=== PATIENT | female | born 1960 | race American Indian/Alaskan Native ===

== ENCOUNTER 2019-02-21 22:04 | Inpatient (IN) | payer OTHER ==
[2019-02-21] MEDS ORDERED: DUONEB *Not for PRN Use IH ONE (22:45)
[2019-02-21] MEDS ORDERED: SOLU-Medrol IV ONE (22:45)
--- NOTE | 2019-02-21 22:49 | Emergency Department Report ---
ED Shortness of Breath HPI - General Chief Complaint: Dyspnea/Respdistress Stated Complaint: MASTER Time Seen by Provider: 02/21/19 22:44 Source: patient, EMS Mode of arrival: Stretcher Limitations: No Limitations - History of Present Illness Initial Comments: Condition is a 58-year-old female that presents emergency room with complaints of difficulty breathing and shortness of breath. Patient brought in by EMS. Patient states her symptoms started about 6 hours ago. Patient states her symptoms are worsening. Patient states she had a cough recently. Patient denies fever and chills. . Patient states it she's not able to walk without getting out of breath. Patient states her shortness of respiratory distress worse with exertion. Patient is complaining of chest pain at a 6 out of 10. Patient states his pain is worse with exertion and better with rest. Patient denies chest pain radiating. She denies history of COPD or CHF. Report received from EMS. EMS states that upon arrival to the patient's house patient was 87% on room air. Patient was placed on oxygen and oxygenation improved. MD Complaint: shortness of breath, cough, chest pain -: Sudden Severity: moderate, severe Pain Scale: 6 Quality: throbbing Consistency: constant Improves With: rest Worsens With: lying flat, exertion, movement, coughing, inspiration Context: recent URI Associated Symptoms: chest pain, cough, sputum production Treatments Prior to Arrival: oxygen - Related Data Home Oxygen Therapy: No Allergies Allergy/AdvReac Type Severity Reaction Status Date / Time No Known Allergies Allergy Verified 02/22/19 00:36 ED Review of Systems ROS: Stated complaint: MASTER Other details as noted in HPI Constitutional: denies: chills, fever Eyes: denies: eye pain, eye discharge, vision change ENT: denies: ear pain, throat pain Respiratory: cough, shortness of breath. denies: wheezing Cardiovascular: chest pain. denies: palpitations Endocrine: no symptoms reported Gastrointestinal: denies: abdominal pain, nausea, diarrhea Genitourinary: denies: urgency, dysuria, discharge Musculoskeletal: denies: back pain, joint swelling, arthralgia Skin: denies: rash, lesions Neurological: denies: headache, weakness, paresthesias Psychiatric: denies: anxiety, depression Hematological/Lymphatic: denies: easy bleeding, easy bruising ED Past Medical Hx - Past Medical History Previous Medical History?: Yes Hx Hypertension: Yes Hx CVA: Yes (right sided) Hx Congestive Heart Failure: No Hx Renal Disease: Yes (ckd) Hx COPD: No Additional medical history: high cholesterol,hyper/hypothyroidism, - Surgical History Past Surgical History?: No - Family History Family history: no significant - Social History Smoking Status: Former Smoker Substance Use Type: None ED Physical Exam - General Limitations: No Limitations General appearance: alert, in no apparent distress - Head Head exam: Present: atraumatic, normocephalic - Eye Eye exam: Present: normal appearance - ENT ENT exam: Present: mucous membranes moist - Neck Neck exam: Present: normal inspection - Respiratory Respiratory exam: Present: wheezes, rhonchi, decreased breath sounds. Absent: chest wall tenderness - Cardiovascular Cardiovascular Exam: Present: regular rate, normal rhythm, tachycardia. Absent: systolic murmur, diastolic murmur, rubs, gallop - GI/Abdominal GI/Abdominal exam: Present: soft, normal bowel sounds. Absent: distended, tenderness, guarding - Extremities Exam Extremities exam: Present: normal inspection - Back Exam Back exam: Present: normal inspection - Neurological Exam Neurological exam: Present: alert, oriented X3 - Psychiatric Psychiatric exam: Present: normal affect, normal mood - Skin Skin exam: Present: warm, dry, intact, normal color. Absent: rash ED Course Vital Signs 02/21/19 02/21/19 02/21/19 22:22 22:31 23:00 Temperature 99 F Pulse Rate 103 H 95 H Pulse Rate [ Anterior Bilateral] Respiratory 22 23 Rate Respiratory Rate [Anterior Bilateral] Blood Pressure 145/100 Blood Pressure 146/100 [Right] O2 Sat by Pulse 97 97 98 Oximetry 02/21/19 02/21/19 02/21/19 23:05 23:12 23:17 Temperature Pulse Rate 101 H Pulse Rate [ 92 H 98 H Anterior Bilateral] Respiratory 26 H Rate Respiratory 20 23 Rate [Anterior Bilateral] Blood Pressure 146/97 Blood Pressure [Right] O2 Sat by Pulse 95 Oximetry 02/22/19 02/22/19 02/22/19 00:00 00:25 00:55 Temperature Pulse Rate 95 H Pulse Rate [ Anterior Bilateral] Respiratory 20 18 16 Rate Respiratory Rate [Anterior Bilateral] Blood Pressure 135/88 Blood Pressure [Right] O2 Sat by Pulse 97 Oximetry 02/22/19 02/22/19 02/22/19 01:00 01:30 01:41 Temperature Pulse Rate 92 H 89 91 H Pulse Rate [ Anterior Bilateral] Respiratory 21 17 18 Rate Respiratory Rate [Anterior Bilateral] Blood Pressure 139/98 134/94 134/94 Blood Pressure [Right] O2 Sat by Pulse 97 97 97 Oximetry 02/22/19 02/22/19 02/22/19 01:51 02:00 02:11 Temperature Pulse Rate 90 92 H 89 Pulse Rate [ Anterior Bilateral] Respiratory 16 18 16 Rate Respiratory Rate [Anterior Bilateral] Blood Pressure 127/97 127/97 131/94 Blood Pressure [Right] O2 Sat by Pulse 97 97 98 Oximetry 02/22/19 02/22/19 02/22/19 02:21 02:30 02:41 Temperature Pulse Rate 86 86 94 H Pulse Rate [ Anterior Bilateral] Respiratory 15 18 18 Rate Respiratory Rate [Anterior Bilateral] Blood Pressure 123/96 129/92 129/92 Blood Pressure [Right] O2 Sat by Pulse 98 98 97 Oximetry 02/22/19 02/22/19 02/22/19 02:51 03:00 03:11 Temperature Pulse Rate 83 85 85 Pulse Rate [ Anterior Bilateral] Respiratory 17 19 19 Rate Respiratory Rate [Anterior Bilateral] Blood Pressure 136/100 136/96 136/96 Blood Pressure [Right] O2 Sat by Pulse 96 97 98 Oximetry 02/22/19 02/22/19 02/22/19 03:21 03:30 03:41 Temperature Pulse Rate 86 86 84 Pulse Rate [ Anterior Bilateral] Respiratory 16 16 16 Rate Respiratory Rate [Anterior Bilateral] Blood Pressure 128/95 119/93 119/93 Blood Pressure [Right] O2 Sat by Pulse 98 98 98 Oximetry 02/22/19 02/22/19 02/22/19 03:51 04:00 04:11 Temperature Pulse Rate 86 82 86 Pulse Rate [ Anterior Bilateral] Respiratory 14 16 15 Rate Respiratory Rate [Anterior Bilateral] Blood Pressure 128/93 134/94 134/94 Blood Pressure [Right] O2 Sat by Pulse 98 99 99 Oximetry 02/22/19 02/22/19 04:21 04:46 Temperature 98 F Pulse Rate 82 83 Pulse Rate [ Anterior Bilateral] Respiratory 15 16 Rate Respiratory Rate [Anterior Bilateral] Blood Pressure 128/93 Blood Pressure 128/89 [Right] O2 Sat by Pulse 98 100 Oximetry - Reevaluation(s) Reevaluation #1: Patient given multiple medications and patient states she is feeling better but the patient is still complaining of chest pain. Patient will be given aspirin and morphine. 02/22/19 00:20 She states she is feeling better and chest pain is better. lung wheezes have resolved 02/22/19 00:46 Reevaluation #2: Discussed all results with patient. Patient will be admitted to the hospitalist service. Patient agrees to plan of care. 02/22/19 01:06 - Consultations Consultation #1: Hospitalist consulted for admission. Hospitalist to admit patient. Hospitalist to assume care patient. 02/22/19 01:06 ED Medical Decision Making - Lab Data Result diagrams: 02/21/19 22:40 02/21/19 22:40 - EKG Data -: EKG Interpreted by Me EKG shows normal: sinus rhythm, axis, intervals, QRS complexes, ST-T waves Rate: tachycardia - Radiology Data Radiology results: report reviewed PROCEDURE: XR CHEST 1V AP TECHNIQUE: Chest radiograph single view. HISTORY: Shortness of breath COMPARISONS: None . FINDINGS: Heart: Cardiomegaly. Mediastinum/Vessels: Trachea midline. Lungs/Pleural space: Bibasilar airspace disease and effusion. Effusions are small the moderate. Mild interstitial prominence.. Bony thorax: No acute osseous abnormality. Life support devices: None. IMPRESSION: Findings compatible with congestive heart failure. Cardiomegaly. Basilar airspace disease and effusion.. - Medical Decision Making He is a 58-year-old female that presents to emergency room with shortness of breath and chest pain. Patient was found to be hypoxic by EMS. EMS placed her on oxygen. Patient's saturation is been good on 2 L in the ER. Patient's labs are unremarkable except for anemia of chronic disease, chronic kidney disease, hypokalemia and elevated troponin most likely secondary to chronic kidney disease. Patient had a chest x-ray done which showed CHF changes. Patient admitted to the hospitalist service. - Differential Diagnosis cp. sob. pna. chf. acs Critical Care Time: Yes Critical care attestation.: If time is entered above; I have spent that time in minutes in the direct care of this critically ill patient, excluding procedure time. Critical Care Time: 45 minutes ED Disposition Clinical Impression: Hypoxia, SOB (shortness of breath), New onset of congestive heart failure, Hypokalemia Chest pain Qualifiers: Chest pain type: unspecified Qualified Code(s): R07.9 - Chest pain, unspecified CKD (chronic kidney disease) Qualifiers: Chronic kidney disease stage: unspecified stage Qualified Code(s): N18.9 - Chronic kidney disease, unspecified Anemia Qualifiers: Anemia type: unspecified type Qualified Code(s): D64.9 - Anemia, unspecified CHF exacerbation Qualifiers: Heart failure type: unspecified Qualified Code(s): I50.9 - Heart failure, unspecified Disposition: 09 OP ADMIT IP TO THIS HOSP Is pt being admited?: Yes Does the pt Need Aspirin: No Condition: Critical Time of Disposition: 01:01
[2019-02-21] MEDS ORDERED: MAGNESIUM SULFATE 2GM/50ML 2 GM/50 ML BAG IV ONE (22:50)
[2019-02-21] MEDS ORDERED: MAXIPIME/NS 2 GM/100 ML 2 GM/100 ML BAG IV ONE (22:51)
[2019-02-21 22:52] LABS: Basophils # (Auto) 0.1 K/mm3 (0.0-0.1); Basophils % (Auto) 0.8 % (0.0-1.8); Eosinophils # (Auto) 0.2 K/mm3 (0.0-0.4); Eosinophils % (Auto) 2.4 % (0.0-4.3); Hemoglobin 8.7 gm/dl (10.1-14.3); Lymphocytes # (Auto) 2.2 K/mm3 (1.2-5.4); Lymphocytes % (Auto) 27.6 % (13.4-35.0); Mean Corpuscular HGB Conc 32 % (30-34); Mean Corpuscular Volume 87 fl (79-97); Monocytes # (Auto) 0.9 K/mm3 (0.0-0.8); Monocytes % (Auto) 10.6 % (0.0-7.3); Platelet Count 365 K/mm3 (140-440); Red Blood Count 3.11 M/mm3 (3.65-5.03); Red Cell Distribution Width 19.6 % (13.2-15.2)
--- NOTE | 2019-02-21 23:01 | XRay Report ---
PROCEDURE: XR CHEST 1V AP TECHNIQUE: Chest radiograph single view. HISTORY: Shortness of breath COMPARISONS: None . FINDINGS: Heart: Cardiomegaly. Mediastinum/Vessels: Trachea midline. Lungs/Pleural space: Bibasilar airspace disease and effusion. Effusions are small the moderate. Mild interstitial prominence.. Bony thorax: No acute osseous abnormality. Life support devices: None. IMPRESSION: Findings compatible with congestive heart failure. Cardiomegaly. Basilar airspace diseas e and effusion.. This document is electronically signed by Rene Su MD., February 21 2019 10:59:34 PM ET
[2019-02-21 23:02] LABS: INR 1.5 (0.87-1.13)
[2019-02-21 23:03] LABS: Partial Thromboplastin Time 37.4 Sec. (24.2-36.6)
[2019-02-21 23:08] LABS: Calcium 9.1 mg/dL (8.4-10.2)
[2019-02-22] MEDS ORDERED: MORPHINE ONE (00:21)
[2019-02-22] MEDS ORDERED: ASPIRIN ONE (00:21)
[2019-02-22] MEDS ORDERED: ASPIRIN PO ONE (00:25)
[2019-02-22] MEDS ORDERED: MORPHINE IV ONE (00:26)
--- NOTE | 2019-02-22 01:36 | History and Physical Report ---
History of Present Illness Date of examination: 02/22/19 History of present illness: 58-year-old woman with history of hypertension, chronic kidney disease, hyperthyroidism, CVA, hyperlipidemia parathyroid comes to the emergency room with complaints of shortness of breath, PND, orthopnea or lower extremity edema. She also complained of chest pain going across her chest which she describes as sharp, worse with breathing, no radiation, intensity 5/10, CAD) exacerbating or relieving factors. She is on chronic warfarin therapy, unclear why. He had wheezing in the emergency room, given steroids, magnesium, and a breathing treatment, cefepime Review of systems Constitutional: no weight loss, chills, fever Ears, eyes, nose, mouth and throat: no nasal congestion, no nasal discharge, no sinus pressure, no vision change, no red eye. Neck: No neck pain or rigidity. Cardiovascular: no palpitations, chest pain Respiratory: no cough, shortness of breath Gastrointestinal: no hematochezia, abdominal pain Genitourinary : no frequency , no hematuria Musculoskeletal: no joint swelling or muscle ache Integumentary: no rash, no pruritis Neurological: no parathesias, no focal weakness Endocrine: no cold or heat intolerance, no polyuria or polydipsia Hematologic/Lymphatic: no easy bruising, no easy bleeding, no gland swelling Allergic/Immunologic: no urticaria, no angioedema. PAST MEDICAL HISTORY: hypertension, chronic kidney disease, hyperthyroidism, CVA, hyperlipidemia parathyroid PAST SURGICAL HISTORY: None SOCIAL HISTORY: Denies alcohol, drugs, tobacco FAMILY HISTORY: Hypertension Medications and Allergies Allergies Allergy/AdvReac Type Severity Reaction Status Date / Time No Known Allergies Allergy Verified 02/22/19 00:36 Home Medications Medication Instructions Recorded Confirmed Last Taken Type Atovaquone [Mepron] 2 tsp PO DAILY 02/22/19 02/22/19 02/21/19 History Calcitriol [Rocaltrol] 1 tab PO DAILY 02/22/19 02/22/19 Unknown History Cinacalcet [Sensipar] 30 mg PO QDAY 02/22/19 02/22/19 02/21/19 History Ergocalciferol [Vitamin D2] 1 cap PO WMHS 02/22/19 02/22/19 Unknown History Levothyroxine [Synthroid] 75 mcg PO QAM 02/22/19 02/22/19 Unknown History Lisinopril [Zestril TAB] 20 mg PO QDAY 02/22/19 02/22/19 Unknown History Nicotine [Habitrol] 14 mg TD DAILY 02/22/19 02/22/19 02/21/19 History Omeprazole 20 mg PO DAILY 02/22/19 02/22/19 Unknown History Potassium Chloride [K-Dur] 20 meq PO QDAY 02/22/19 02/22/19 Unknown History Pravastatin [Pravachol] 20 mg PO QHS 02/22/19 02/22/19 Unknown History Sodium Bicarbonate 650 mg PO DAILY 02/22/19 02/22/19 02/21/19 History Torsemide [Demadex] 100 mg PO DAILY 02/22/19 02/22/19 Unknown History Warfarin [Coumadin] 5 mg PO QDAY 02/22/19 02/22/19 02/21/19 History predniSONE [Deltasone] 60 mg PO QDAY 02/22/19 02/22/19 02/21/19 History Exam - Physical Exam Narrative exam: General Apperance: The patient lying in bed, breathing comfortable HEENT: Normocephalic, atraumatic. Pupils equally round and reactive to light, EOMI, no sclericterus or JVD or thyromegaly or nodule. , no carotid bruit, mucous membranes moist, no exudate or erythema Heart: S1-S2, regular is rhythm Lungs: Crackles bilaterally, breathing comfortable Abdomen: Positive bowel sounds, soft, nontender, nondistended, no organomegaly Extremities: 3+ edema up to knees,no cyanosis clubbing Skin: no rash, nodule, warm and dry Neuro: cranial nerves 2-12 intact, speech is fluent, motor/sensory intact - Constitutional Vitals: Temp Pulse Resp BP Pulse Ox 99 F 92 H 21 139/98 97 02/21/19 22:22 02/22/19 01:00 02/22/19 01:00 02/22/19 01:00 02/22/19 01:00 Results - Labs CBC & Chem 7: 02/24/19 09:20 02/24/19 09:20 Labs: Abnormal lab results 02/21/19 02/21/19 02/21/19 Range/Units 22:40 22:40 22:40 RBC 3.11 L (3.65-5.03) M/mm3 Hgb 8.7 L (10.1-14.3) gm/dl Hct 27.0 L (30.3-42.9) % RDW 19.6 H (13.2-15.2) % [place] % (Auto) 10.6 H (0.0-7.3) % [place] # 0.9 H (0.0-0.8) K/mm3 PT 19.1 H (12.2-14.9) Sec. INR 1.50 H (0.87-1.13) APTT 37.4 H (24.2-36.6) Sec. Potassium 2.9 L* (3.6-5.0) mmol/L Chloride 113.5 H (98-107) mmol/L Carbon Dioxide 21 L (22-30) mmol/L BUN 20 H (7-17) mg/dL Creatinine 2.5 H (0.7-1.2) mg/dL Troponin T 0.044 H (0.00-0.029) ng/mL - Imaging and Cardiology EKG: image reviewed Chest x-ray: report reviewed Assessment and Plan Assessment New-onset CHF, probably diastolic dysfunction chest pain Hypokalemia Hypertension Chronic kidney disease Hyperlipidemia History of CVA hyper/hyperthyroidism hypoparathyroidism Plan Admit to medicine diuresis IV Lasix Start Beta montez, , aspirin hold MARYCRUZ inhibitor, clear if there is an acute component to the kidney disease Check cardiac enzymes, d-dimer, echo, consult cardiology Monitor I's and O's, daily weights Obtain stress test Continue appropriate outpatient medications DVT prophylaxis
[2019-02-22] MEDS ORDERED: LASIX IV ONE ×2 (01:55→02:46)
[2019-02-22 02:13] LABS: Chol/HDL Ratio 3.3 %
[2019-02-22] MEDS ORDERED: K-DUR PO ONE (02:21)
[2019-02-22] MEDS ORDERED: SODIUM CHLORIDE FLUSH SYRINGE 10 ML IV PRN (02:23)
[2019-02-22] MEDS ORDERED: TYLENOL PO PRN (02:23)
[2019-02-22] MEDS ORDERED: ZOFRAN IV PRN (02:23)
[2019-02-22] MEDS: KCL 10MEQ/100ML 10 MEQ/100 ML BAG IV SCH ×2 (02:44→03:45)
[2019-02-22] MEDS ORDERED: LASIX ONE (04:48)
[2019-02-22 04:57] LABS: Creatine Kinase MB < 1.0 ng/mL (0.0-4.0)
[2019-02-22] MEDS ORDERED: LASIX IV SCH (06:00)
[2019-02-22 06:41] LABS: Basophils % (Auto) 0.3 % (0.0-1.8); Hematocrit 26.9 % (30.3-42.9); Hemoglobin 8.8 gm/dl (10.1-14.3); Lymphocytes # (Auto) 1.1 K/mm3 (1.2-5.4); Lymphocytes % (Auto) 13.1 % (13.4-35.0); Mean Corpuscular HGB Conc 33 % (30-34); Mean Corpuscular Volume 86 fl (79-97); Monocytes # (Auto) 0.1 K/mm3 (0.0-0.8); Monocytes % (Auto) 1.2 % (0.0-7.3); Platelet Count 379 K/mm3 (140-440); Red Blood Count 3.12 M/mm3 (3.65-5.03); Red Cell Distribution Width 19.4 % (13.2-15.2)
[2019-02-22 06:43] LABS: INR 1.56 (0.87-1.13)
[2019-02-22 06:44] LABS: Partial Thromboplastin Time 40.4 Sec. (24.2-36.6)
[2019-02-22 07:32] LABS: Calcium 8.8 mg/dL (8.4-10.2)
[2019-02-22] MEDS ORDERED: LOVENOX SUB-Q SCH (10:00)
[2019-02-22] MEDS ORDERED: LEXISCAN IV ONE ×2 (10:26→10:29)
--- NOTE | 2019-02-22 12:28 | Consultation ---
History of Present Illness Consult date: 02/22/19 Consult reason: shortness of breath History of present illness: 58 year old female, poor historian presenting with shortness of breath. Patient denies prior history of cardiac disease. CXR is pertinent for CMG and pulmonary edema. Patient on warfarin at home but she is unsure of why. Troponin elevated secondary to renal failure. MPI today showing no ischemia Past History Past Medical History: hypertension, hyperlipidemia, renal failure, stroke, other (hyperthyroidism) Social history: smoking (Quit December 17, 2018) Medications and Allergies Allergies Allergy/AdvReac Type Severity Reaction Status Date / Time No Known Allergies Allergy Verified 02/22/19 00:36 Home Medications Medication Instructions Recorded Confirmed Last Taken Type Atovaquone [Mepron] 2 tsp PO DAILY 02/22/19 02/22/19 02/21/19 History Calcitriol [Rocaltrol] 1 tab PO DAILY 02/22/19 02/22/19 Unknown History Cinacalcet [Sensipar] 30 mg PO QDAY 02/22/19 02/22/19 02/21/19 History Ergocalciferol [Vitamin D2] 1 cap PO WMHS 02/22/19 02/22/19 Unknown History Levothyroxine [Synthroid] 75 mcg PO QAM 02/22/19 02/22/19 Unknown History Lisinopril [Zestril TAB] 20 mg PO QDAY 02/22/19 02/22/19 Unknown History Nicotine [Habitrol] 14 mg TD DAILY 02/22/19 02/22/19 02/21/19 History Omeprazole 20 mg PO DAILY 02/22/19 02/22/19 Unknown History Potassium Chloride [K-Dur] 20 meq PO QDAY 02/22/19 02/22/19 Unknown History Pravastatin [Pravachol] 20 mg PO QHS 02/22/19 02/22/19 Unknown History Sodium Bicarbonate 650 mg PO DAILY 02/22/19 02/22/19 02/21/19 History Torsemide [Demadex] 100 mg PO DAILY 02/22/19 02/22/19 Unknown History Warfarin [Coumadin] 5 mg PO QDAY 02/22/19 02/22/19 02/21/19 History predniSONE [Deltasone] 60 mg PO QDAY 02/22/19 02/22/19 02/21/19 History Active Meds: Active Medications Acetaminophen (Tylenol) 650 mg PO Q4H PRN PRN Reason: Pain MILD(1-3)/Fever >100.5/[place] Aspirin (Baby Aspirin) 81 mg PO QDAY CHOLO Carvedilol (Coreg) 3.125 mg PO BID CHOLO Furosemide (Lasix) 40 mg IV BID@0600,1800 [facility] Ondansetron HCl (Zofran) 4 mg IV Q8H PRN PRN Reason: Nausea And Vomiting Sodium Chloride (Sodium Chloride Flush Syringe 10 Ml) 10 ml IV BID CHOLO Sodium Chloride (Sodium Chloride Flush Syringe 10 Ml) 10 ml IV PRN PRN PRN Reason: LINE FLUSH Review of Systems All systems: negative Physical Examination Vital Signs Temp Pulse Resp BP Pulse Ox 99 F 103 H 22 146/100 97 02/21/19 22:22 02/21/19 22:22 02/21/19 22:22 02/21/19 22:22 02/21/19 22:22 General appearance: no acute distress HEENT: Positive: PERRL Neck: Positive: neck supple Cardiac: Positive: Reg Rate and Rhythm, Systolic Murmur Lungs: Positive: Normal Exam Abdomen: Positive: Soft Extremities: Present: edema Results 02/22/19 06:06 02/22/19 06:06 Cardiac Enzymes 02/22/19 02/22/19 Range/Units 02:35 08:31 CK-MB (CK-2) < 1.0 1.0 (0.0-4.0) ng/mL Coagulation 02/21/19 02/22/19 Range/Units 22:40 06:06 PT 19.1 H 19.7 H (12.2-14.9) Sec. INR 1.50 H 1.56 H (0.87-1.13) APTT 37.4 H 40.4 H (24.2-36.6) Sec. Lipids 02/21/19 Range/Units 22:40 Triglycerides 111 (2-149) mg/dL Cholesterol 165 (50-199) mg/dL HDL Cholesterol 50 (40-59) mg/dL Cholesterol/HDL Ratio 3.30 % CBC 02/21/19 02/22/19 Range/Units 22:40 06:06 WBC 8.1 8.1 (4.5-11.0) K/mm3 RBC 3.11 L 3.12 L (3.65-5.03) M/mm3 Hgb 8.7 L 8.8 L (10.1-14.3) gm/dl Hct 27.0 L 26.9 L (30.3-42.9) % Plt Count 365 379 (140-440) K/mm3 Lymph # 2.2 1.1 L (1.2-5.4) K/mm3 [place] # 0.9 H 0.1 (0.0-0.8) K/mm3 Eos # 0.2 0.0 (0.0-0.4) K/mm3 Baso # 0.1 0.0 (0.0-0.1) K/mm3 Comprehensive Metabolic Panel 02/21/19 02/22/19 Range/Units 22:40 06:06 Sodium 145 144 (137-145) mmol/L Potassium 2.9 L* 3.8 D (3.6-5.0) mmol/L Chloride 113.5 H 111.5 H (98-107) mmol/L Carbon Dioxide 21 L 18 L (22-30) mmol/L BUN 20 H 20 H (7-17) mg/dL Creatinine 2.5 H 2.5 H (0.7-1.2) mg/dL Glucose 98 109 H (65-100) mg/dL Calcium 9.1 8.8 (8.4-10.2) mg/dL - EKG Interpretation EKG: sinus rhythm EKG interpretations - Telemetry EKG Rhythm: Sinus Rhythm Assessment and Plan Shortness of breath No ischemia by MPI this admission LVEF 45-50% by echo Pulmonary edema and cardiomegaly on CXR Acute diastolic heart failure Non-specific troponin in the setting of renal failure Systemic Hypertension Chronic renal failure Normocytic anemia History of CVA 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
[2019-02-22] MEDS: COREG PO SCH ×2 (12:54→21:28)
[2019-02-22] MEDS: BABY ASPIRIN PO SCH (12:54)
[2019-02-22] MEDS: SODIUM CHLORIDE FLUSH SYRINGE 10 ML IV SCH ×2 (12:54→21:29)
--- NOTE | 2019-02-22 15:13 | Event Note ---
Date: 02/22/19 Patient admitted earlier this morning shows a moderate amount of acute diastolic CHF, CKD. Stress test was done this morning. Continue diuresis. Nephrology consulted. Continue management as outlined per H&P.
[2019-02-22] MEDS: LASIX IV SCH (17:50)
--- NOTE | 2019-02-23 05:03 | Treadmill Report ---
ORDERING PHYSICIAN: Antwan Desir MD FINDINGS: There is no scintigraphic evidence of myocardial ischemia. The left ventricular cavity is normal in size. There is borderline global left ventricular hypokinesis. The left ventricular ejection fraction is measured at 54%. CONCLUSION: 1. No scintigraphic evidence of myocardial ischemia. 2. This is a low risk myocardial perfusion study associated with a cardiovascular event rate of less than 1% in the next 1 year. JOB# [id number] OSEAS/LISANDRA
[2019-02-23 05:33] LABS: Basophils % (Auto) 0.1 % (0.0-1.8); Hematocrit 23.4 % (30.3-42.9); Hemoglobin 7.6 gm/dl (10.1-14.3); Lymphocytes # (Auto) 1.5 K/mm3 (1.2-5.4); Lymphocytes % (Auto) 15.7 % (13.4-35.0); Mean Corpuscular HGB Conc 32 % (30-34); Mean Corpuscular Volume 87 fl (79-97); Monocytes # (Auto) 0.9 K/mm3 (0.0-0.8); Monocytes % (Auto) 9.1 % (0.0-7.3); Platelet Count 338 K/mm3 (140-440); Red Blood Count 2.69 M/mm3 (3.65-5.03); Red Cell Distribution Width 19.7 % (13.2-15.2)
[2019-02-23] MEDS: LASIX IV SCH ×2 (05:49→17:11)
[2019-02-23 06:02] LABS: Calcium 8.9 mg/dL (8.4-10.2)
[2019-02-23] MEDS: BABY ASPIRIN PO SCH (10:31)
[2019-02-23] MEDS: COREG PO SCH ×2 (10:31→21:19)
[2019-02-23] MEDS: SODIUM CHLORIDE FLUSH SYRINGE 10 ML IV SCH ×2 (10:32→21:19)
--- NOTE | 2019-02-23 12:51 | Progress Note ---
Assessment and Plan - Patient Problems (1) SOB (shortness of breath) Current Visit: Yes Status: Acute Plan to address problem: We'll continue management of fluid overload as previously outlined. Echocardiogram shows mild left ventricular dysfunction, ejection fraction 45- 50%. Subjective Date of service: 02/23/19 Interval history: Patient is comfortable, no new cardiac complaints. Objective Vital Signs Temp Pulse Resp BP Pulse Ox 02/23/19 11:07 95 02/23/19 07:46 70 02/23/19 04:29 98.0 F 75 18 117/77 99 02/23/19 04:00 70 02/22/19 23:54 98.4 F 78 18 110/76 100 02/22/19 21:28 80 132/92 02/22/19 20:00 79 02/22/19 19:25 98.1 F 82 18 132/91 98 - Physical Examination General: No Apparent Distress HEENT: Positive: PERRL Neck: Positive: neck supple Cardiac: Positive: Reg Rate and Rhythm Lungs: Positive: Decreased Breath Sounds Neuro: Positive: Grossly Intact Abdomen: Positive: Soft Skin: Positive: Clear Extremities: Present: +1 Edema - Labs and Meds CBC 02/23/19 Range/Units 04:27 WBC 9.7 (4.5-11.0) K/mm3 RBC 2.69 L (3.65-5.03) M/mm3 Hgb 7.6 L (10.1-14.3) gm/dl Hct 23.4 L (30.3-42.9) % Plt Count 338 (140-440) K/mm3 Lymph # 1.5 (1.2-5.4) K/mm3 [place] # 0.9 H (0.0-0.8) K/mm3 Eos # 0.0 (0.0-0.4) K/mm3 Baso # 0.0 (0.0-0.1) K/mm3 Comprehensive Metabolic Panel 02/23/19 Range/Units 04:27 Sodium 143 (137-145) mmol/L Potassium 3.5 L (3.6-5.0) mmol/L Chloride 114.7 H (98-107) mmol/L Carbon Dioxide 22 (22-30) mmol/L BUN 23 H (7-17) mg/dL Creatinine 2.5 H (0.7-1.2) mg/dL Glucose 150 H (65-100) mg/dL Calcium 8.9 (8.4-10.2) mg/dL - Imaging and Cardiology EKG: image reviewed
--- NOTE | 2019-02-23 13:20 | Progress Note ---
Assessment and Plan Assessment and plan: 58-year-old woman with history of hypertension, chronic kidney disease, hyperthyroidism, CVA, hyperlipidemia parathyroid comes to the emergency room with complaints of shortness of breath, PND, orthopnea or lower extremity edema. She also complained of chest pain going across her chest which she describes as sharp, worse with breathing, no radiation, intensity 5/10, CAD) exacerbating or relieving factors. She is on chronic warfarin therapy, unclear why. Acute combined diastolic and systolic CHF - Patient is on IV Lasix - Cardiology consult appreciated - Patient denied history of congestive heart failure, but was taking torsemide as an outpatient - Echo was done and showed ejection fraction of 45-50% Chronic renal failure - Nephrology consulted Anemia likely due to chronic illness - Anemia workup - Hemoglobin dropped from 8.8 to 7.6 - We will monitor DVT prophylaxis - On heparin Disposition - Continue inpatient care History Interval history: Patient was seen and evaluated this morning, patient denies shortness of breath but still she has significant bilateral lower extremity edema. Hospitalist Physical - Physical exam Narrative exam: Not in cardiopulmonary distress. The patient appeared well nourished and normally developed. Vital signs as documented. Head exam is unremarkable. No scleral icterus . Neck is without jugular venous distension, thyromegaly, or carotid bruits. Lungs are clear to auscultation. Cardiac exam reveals regular rate and Rhythm. Abdominal exam reveals normal bowel sounds, no masses, no organomegaly and no aortic enlargement. Extremities are nonedematous and both femoral and pedal pulses are normal. 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 No focal weakness. - Constitutional Vitals: Temp Pulse Resp BP Pulse Ox 98.0 F 70 18 117/77 95 02/23/19 04:29 02/23/19 07:46 02/23/19 04:29 02/23/19 04:29 02/23/19 11:07 General appearance: Present: no acute distress Results - Labs CBC & Chem 7: 02/23/19 04:27 02/23/19 04:27 Labs: Laboratory Last Values WBC 9.7 K/mm3 (4.5-11.0) 02/23/19 04:27 RBC 2.69 M/mm3 (3.65-5.03) L 02/23/19 04:27 Hgb 7.6 gm/dl (10.1-14.3) L 02/23/19 04:27 Hct 23.4 % (30.3-42.9) L 02/23/19 04:27 MCV 87 fl (79-97) 02/23/19 04:27 MCH 28 pg (28-32) 02/23/19 04:27 MCHC 32 % (30-34) 02/23/19 04:27 RDW 19.7 % (13.2-15.2) H 02/23/19 04:27 Plt Count 338 K/mm3 (140-440) 02/23/19 04:27 Lymph % (Auto) 15.7 % (13.4-35.0) 02/23/19 04:27 [place] % (Auto) 9.1 % (0.0-7.3) H 02/23/19 04:27 Eos % (Auto) 0.0 % (0.0-4.3) 02/23/19 04:27 Baso % (Auto) 0.1 % (0.0-1.8) 02/23/19 04:27 Lymph # 1.5 K/mm3 (1.2-5.4) 02/23/19 04:27 [place] # 0.9 K/mm3 (0.0-0.8) H 02/23/19 04:27 Eos # 0.0 K/mm3 (0.0-0.4) 02/23/19 04:27 Baso # 0.0 K/mm3 (0.0-0.1) 02/23/19 04:27 Seg Neutrophils % 75.1 % (40.0-70.0) H 02/23/19 04:27 Seg Neutrophils # 7.3 K/mm3 (1.8-7.7) 02/23/19 04:27 PT 19.7 Sec. (12.2-14.9) H 02/22/19 06:06 INR 1.56 (0.87-1.13) H 02/22/19 06:06 APTT 40.4 Sec. (24.2-36.6) H 02/22/19 06:06 Sodium 143 mmol/L (137-145) 02/23/19 04:27 Potassium 3.5 mmol/L (3.6-5.0) L 02/23/19 04:27 Chloride 114.7 mmol/L (98-107) H 02/23/19 04:27 Carbon Dioxide 22 mmol/L (22-30) 02/23/19 04:27 10 mmol/L 02/23/19 04:27 BUN 23 mg/dL (7-17) H 02/23/19 04:27 2.5 mg/dL (0.7-1.2) H 02/23/19 04:27 Estimated GFR 24 ml/min 02/23/19 04:27 9 % 02/23/19 04:27 Glucose 150 mg/dL (65-100) H 02/23/19 04:27 Lactic Acid 1.00 mmol/L (0.7-2.0) 02/21/19 22:48 Calcium 8.9 mg/dL (8.4-10.2) 02/23/19 04:27 25 units/L (30-135) L 02/22/19 08:31 CK-MB (CK-2) 1.0 ng/mL (0.0-4.0) 02/22/19 08:31 CK-MB (CK-2) Rel Index 4.0 (0-4) 02/22/19 08:31 0.027 ng/mL (0.00-0.029) 02/22/19 08:31 NT-Pro-B Natriuret Pep 3000 pg/mL (0-900) H 02/21/19 22:48 Triglycerides 111 mg/dL (2-149) 02/21/19 22:40 Cholesterol 165 mg/dL (50-199) 02/21/19 22:40 93 mg/dL (50-130) 02/21/19 22:40 50 mg/dL (40-59) 02/21/19 22:40 3.30 % 02/21/19 22:40 TSH 9.630 mlU/mL (0.270-4.200) H 02/22/19 14:52 Active Medications - Current Medications Current Medications: Generic Name Dose Route Start Last Admin Trade Name Freq PRN Reason Stop Dose Admin Acetaminophen 650 mg 02/22/19 02:23 Tylenol PO Q4H PRN Pain MILD(1-3)/Fever >100.5/[place] Aspirin 81 mg 02/22/19 10:00 02/23/19 10:31 Baby Aspirin PO 81 mg QDAY CHOLO Administration Carvedilol 3.125 mg 02/22/19 10:00 02/23/19 10:31 Coreg PO 3.125 mg BID CHOLO Administration Furosemide 40 mg 02/22/19 18:00 02/23/19 05:49 Lasix IV 40 mg BID@0600,1800 CHOLO Administration Ondansetron HCl 4 mg 02/22/19 02:23 Zofran IV Q8H PRN Nausea And Vomiting Sodium Chloride 10 ml 02/22/19 10:00 02/23/19 10:32 Sodium Chloride Flush Syringe 10 Ml IV 10 ml BID CHOLO Administration Sodium Chloride 10 ml 02/22/19 02:23 Sodium Chloride Flush Syringe 10 Ml IV PRN PRN LINE FLUSH
[2019-02-23 15:14] LABS: Iron 40 ug/dL (37-170); Total Iron Binding Capacity 76 mcg/dL (250-450)
--- NOTE | 2019-02-23 16:11 | Consultation ---
History of Present Illness - Reason for Consult Consult date: 02/23/19 acute renal failure, chronic renal failure - History of Present Illness The patient is a 58 YO female with history significant for Hypertension, HLD, Chronic kidney disease, Hypothyroidism, CVA and Hyperparathyroidism who came to [facility] ED with complaints of shortness of breath for the past few days. Patient is short of breath both at rest and exertion. Associated symptoms include PND, orthopnea and lower extremity edema. She denies chest pain, N, V, D, abd pain, dizziness, syncope, fever, chills, dysuria or hematuria. Patient was admitted with CHF exacerbation. Creatinine is 2.5. Nephrology was consulted for further evaluation. Past History Past Medical History: hypertension, hyperlipidemia, renal failure, stroke, other (hyperthyroidism) Social history: smoking (Quit December 17, 2018) Medications and Allergies Allergies Allergy/AdvReac Type Severity Reaction Status Date / Time No Known Allergies Allergy Verified 02/22/19 00:36 Home Medications Medication Instructions Recorded Confirmed Last Taken Type Atovaquone [Mepron] 2 tsp PO DAILY 02/22/19 02/22/19 02/21/19 History Calcitriol [Rocaltrol] 1 tab PO DAILY 02/22/19 02/22/19 Unknown History Cinacalcet [Sensipar] 30 mg PO QDAY 02/22/19 02/22/19 02/21/19 History Ergocalciferol [Vitamin D2] 1 cap PO WMHS 02/22/19 02/22/19 Unknown History Levothyroxine [Synthroid] 75 mcg PO QAM 02/22/19 02/22/19 Unknown History Lisinopril [Zestril TAB] 20 mg PO QDAY 02/22/19 02/22/19 Unknown History Nicotine [Habitrol] 14 mg TD DAILY 02/22/19 02/22/19 02/21/19 History Omeprazole 20 mg PO DAILY 02/22/19 02/22/19 Unknown History Potassium Chloride [K-Dur] 20 meq PO QDAY 02/22/19 02/22/19 Unknown History Pravastatin [Pravachol] 20 mg PO QHS 02/22/19 02/22/19 Unknown History Sodium Bicarbonate 650 mg PO DAILY 02/22/19 02/22/19 02/21/19 History Torsemide [Demadex] 100 mg PO DAILY 02/22/19 02/22/19 Unknown History Warfarin [Coumadin] 5 mg PO QDAY 02/22/19 02/22/19 02/21/19 History predniSONE [Deltasone] 60 mg PO QDAY 02/22/19 02/22/19 02/21/19 History Active Meds: Active Medications Acetaminophen (Tylenol) 650 mg PO Q4H PRN PRN Reason: Pain MILD(1-3)/Fever >100.5/[place] Aspirin (Baby Aspirin) 81 mg PO QDAY [facility] Last Admin: 02/23/19 10:31 Dose: 81 mg Documented by: Carvedilol (Coreg) 3.125 mg PO BID [facility] Last Admin: 02/23/19 10:31 Dose: 3.125 mg Documented by: Furosemide (Lasix) 40 mg IV BID@0600,1800 [facility] Last Admin: 02/23/19 05:49 Dose: 40 mg Documented by: Levothyroxine Sodium (Synthroid) 75 mcg PO QAM [facility] Ondansetron HCl (Zofran) 4 mg IV Q8H PRN PRN Reason: Nausea And Vomiting Pravastatin Sodium (Pravachol) 20 mg PO QHS [facility] Sodium Chloride (Sodium Chloride Flush Syringe 10 Ml) 10 ml IV BID [facility] Last Admin: 02/23/19 10:32 Dose: 10 ml Documented by: Sodium Chloride (Sodium Chloride Flush Syringe 10 Ml) 10 ml IV PRN PRN PRN Reason: LINE FLUSH Review of Systems Constitutional: weight loss, anorexia, fatigue, poor appetite, no weight gain, no fever, no chills, no weakness Breasts: deferred Cardiovascular: orthopnea, edema, shortness of breath, dyspnea on exertion, high blood pressure, leg edema, decreased exercise tolerance, no chest pain, no palpitations, no syncope, no lightheadedness Respiratory: cough, shortness of breath, dyspnea on exertion, no hemoptysis, no home oxygen Gastrointestinal: no abdominal pain, no nausea, no vomiting, no diarrhea, no melena, no hematochezia Genitourinary Female: no dysuria, no hematuria Rectal: no bleeding Musculoskeletal: no gait dysfunction Integumentary: no sores, no wounds, no jaundice Neurological: no seizures, no syncope, no convulsions, no aphasia, no change in speech, no change in mentation, no confusion, no memory loss Exam - Vital Signs Vital signs: Vital Signs Temp Pulse Resp BP Pulse Ox 99 F 103 H 22 146/100 97 02/21/19 22:22 02/21/19 22:22 02/21/19 22:22 02/21/19 22:22 02/21/19 22:22 - General Appearance General appearance: well-developed, well-nourished, appears stated age, other (no distress) EENT: ATNC, PERRL, mucous membranes dry, hearing intact, vision intact Neck: Present: neck supple, trachea midline Respiratory: Clear to Ascultation Heart: regular, S1S2, no murmurs Gastrointestinal: Present: normoactive bowel sounds. Absent: tenderness, distended Integumentary: no rash, warm and dry Neurologic: no focal deficit, no asterixis, alert and oriented x3 Musculoskeletal: Present: other (2+ edema of LEs) Results - Lab Results 02/23/19 04:27 02/23/19 04:27 Most recent lab results Calcium 8.9 mg/dL (8.4-10.2) 02/23/19 04:27 Assessment and Plan 1. Acute kidney injury: APRIL superimposed on CKD in the setting of CHF exacerbation. Baseline renal function is unknown. Urine studies and Renal US. Monitor renal function. Renal prognosis is guarded. Avoid nephrotoxic agents. Meds dosage based on GFR. 2. FEN: Volume overload, IV Lasix. Replete K. Monitor lytes. 3. CHF exacerbation: Followed by Cards. 4. Secondary hyperparathyroidism: Calcitriol and Sensipar. 5. Anemia: POA. 6. HTN.
[2019-02-23] MEDS ORDERED: K-DUR PO ONE (16:18)
--- NOTE | 2019-02-23 18:00 | Ultrasound Report ---
PROCEDURE: US RENAL BILAT TECHNIQUE: Transverse longitudinal sonograms obtained with chapa scale sonography HISTORY: Acute renal failure. COMPARISONS: None FINDINGS: Right kidney measures 9.4 x 4.4 x 5.2 cm. Cortex 1.0 cm. Increased cortical echogenicity. Mild right hydronephrosis. Left kidney measures 9.9 x 5.6 x 4.7 cm. Cortex 1.0 cm. Increased cortical echogenicity. No hydroneph rosis Visualized bladder unremarkable. Trace free fluid noted in Morison's pouch. IMPRESSION: Echogenic kidneys compatible with chronic medical renal disease. Borderline cortical thinning Mild right hydronephrosis Trace free fluid. This document is electronically signed by Rene Su MD., February 23 2019 05:58:39 PM ET
[2019-02-23 18:01] LABS: Creatinine,Urine 35.2 mg/dL (0.1-20.0)
[2019-02-23 18:21] LABS: Bilirubin,Urine NEG (Negative); Blood,Urine NEG (Negative); Color,Urine Straw (Yellow); Urobilinogen,Urine < 2.0 mg/dL (<2.0)
[2019-02-23 18:32] LABS: Protein/Creatinine Ratio,Urine 7.59
[2019-02-23] MEDS: PRAVACHOL PO SCH (21:19)
[2019-02-24] MEDS: LASIX IV SCH ×2 (05:26→17:18)
--- NOTE | 2019-02-24 09:26 | Progress Note ---
Assessment and Plan Assessment and plan: 58-year-old woman with history of hypertension, chronic kidney disease, hyperthyroidism, CVA, hyperlipidemia parathyroid comes to the emergency room with complaints of shortness of breath, PND, orthopnea or lower extremity edema. She also complained of chest pain going across her chest which she describes as sharp, worse with breathing, no radiation, intensity 5/10, CAD) exacerbating or relieving factors. She is on chronic warfarin therapy, unclear why. Acute combined diastolic and systolic CHF - Patient is on IV Lasix - Cardiology consult appreciated - Patient denied history of congestive heart failure, but was taking torsemide as an outpatient - Echo was done and showed ejection fraction of 45-50% Chronic renal failure - Nephrology consulted hypothyroidism elevated tsh and low t4 increase synthroid dose AOCD, folic acid deficiency TIBC is low, add folate daily transfuse to keep hg above 7 DVT prophylaxis - On heparin Disposition - Continue inpatient care History Interval history: Review of systems Constitutional: No fevers, no malaise, no joint pains CVS: Shortness of breath and pedal edema is improving GI: No abdominal pain, no diarrhea, no vomiting, no constipation Respiratory: No shortness of breath, no wheezing, no coughing Hospitalist Physical - Physical exam Narrative exam: Not in cardiopulmonary distress. The patient appeared well nourished and normally developed. Vital signs as documented. Head exam is unremarkable. No scleral icterus . Neck is without jugular venous distension, thyromegaly, or carotid bruits. Lungs are clear to auscultation. Cardiac exam reveals regular rate and Rhythm. Abdominal exam reveals normal bowel sounds, no masses, no organomegaly and no aortic enlargement. Extremities are nonedematous and both femoral and pedal pulses are normal. 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 No focal weakness. - Constitutional Vitals: Temp Pulse Resp BP Pulse Ox 98.2 F 90 14 114/80 98 02/24/19 08:08 02/24/19 08:08 02/24/19 08:08 02/24/19 08:08 02/24/19 08:08 General appearance: Present: no acute distress Results - Labs CBC & Chem 7: 02/24/19 09:20 02/28/19 08:12 Labs: Laboratory Last Values WBC 9.7 K/mm3 (4.5-11.0) 02/23/19 04:27 RBC 2.69 M/mm3 (3.65-5.03) L 02/23/19 04:27 Hgb 7.6 gm/dl (10.1-14.3) L 02/23/19 04:27 Hct 23.4 % (30.3-42.9) L 02/23/19 04:27 MCV 87 fl (79-97) 02/23/19 04:27 MCH 28 pg (28-32) 02/23/19 04:27 MCHC 32 % (30-34) 02/23/19 04:27 RDW 19.7 % (13.2-15.2) H 02/23/19 04:27 Plt Count 338 K/mm3 (140-440) 02/23/19 04:27 Lymph % (Auto) 15.7 % (13.4-35.0) 02/23/19 04:27 [place] % (Auto) 9.1 % (0.0-7.3) H 02/23/19 04:27 Eos % (Auto) 0.0 % (0.0-4.3) 02/23/19 04:27 Baso % (Auto) 0.1 % (0.0-1.8) 02/23/19 04:27 Lymph # 1.5 K/mm3 (1.2-5.4) 02/23/19 04:27 [place] # 0.9 K/mm3 (0.0-0.8) H 02/23/19 04:27 Eos # 0.0 K/mm3 (0.0-0.4) 02/23/19 04:27 Baso # 0.0 K/mm3 (0.0-0.1) 02/23/19 04:27 Seg Neutrophils % 75.1 % (40.0-70.0) H 02/23/19 04:27 Seg Neutrophils # 7.3 K/mm3 (1.8-7.7) 02/23/19 04:27 PT 19.7 Sec. (12.2-14.9) H 02/22/19 06:06 INR 1.56 (0.87-1.13) H 02/22/19 06:06 APTT 40.4 Sec. (24.2-36.6) H 02/22/19 06:06 Sodium 143 mmol/L (137-145) 02/23/19 04:27 Potassium 3.5 mmol/L (3.6-5.0) L 02/23/19 04:27 Chloride 114.7 mmol/L (98-107) H 02/23/19 04:27 Carbon Dioxide 22 mmol/L (22-30) 02/23/19 04:27 10 mmol/L 02/23/19 04:27 BUN 23 mg/dL (7-17) H 02/23/19 04:27 2.5 mg/dL (0.7-1.2) H 02/23/19 04:27 Estimated GFR 24 ml/min 02/23/19 04:27 9 % 02/23/19 04:27 Glucose 150 mg/dL (65-100) H 02/23/19 04:27 Lactic Acid 1.00 mmol/L (0.7-2.0) 02/21/19 22:48 Calcium 8.9 mg/dL (8.4-10.2) 02/23/19 04:27 Iron 40 ug/dL (37-170) 02/23/19 14:15 TIBC 76 mcg/dL (250-450) L 02/23/19 14:15 1378.0 ng/mL (13.0-400.0) H 02/23/19 14:15 25 units/L (30-135) L 02/22/19 08:31 CK-MB (CK-2) 1.0 ng/mL (0.0-4.0) 02/22/19 08:31 CK-MB (CK-2) Rel Index 4.0 (0-4) 02/22/19 08:31 0.027 ng/mL (0.00-0.029) 02/22/19 08:31 NT-Pro-B Natriuret Pep 3000 pg/mL (0-900) H 02/21/19 22:48 Triglycerides 111 mg/dL (2-149) 02/21/19 22:40 Cholesterol 165 mg/dL (50-199) 02/21/19 22:40 93 mg/dL (50-130) 02/21/19 22:40 50 mg/dL (40-59) 02/21/19 22:40 3.30 % 02/21/19 22:40 Vitamin B12 > 2000 pg/mL (211-911) H 02/23/19 14:15 6.32 ng/mL (7.3-26.0) L 02/23/19 14:15 TSH 9.630 mlU/mL (0.270-4.200) H 02/22/19 14:52 Straw (Yellow) 02/23/19 17:29 Slightly-cloudy (Clear) 02/23/19 17:29 7.0 (5.0-7.0) 02/23/19 17:29 Ur Specific [place] 1.009 (1.003-1.030) 02/23/19 17:29 100 mg/dl mg/dL (Negative) 02/23/19 17:29 50 mg/dL (Negative) 02/23/19 17:29 Neg mg/dL (Negative) 02/23/19 17:29 Neg (Negative) 02/23/19 17:29 Neg (Negative) 02/23/19 17:29 Neg (Negative) 02/23/19 17:29 < 2.0 mg/dL (<2.0) 02/23/19 17:29 Ur Leukocyte Esterase Sm (Negative) 02/23/19 17:29 18.0 /HPF (0.0-6.0) H 02/23/19 17:29 4.0 /HPF (0.0-6.0) 02/23/19 17:29 U Epithel Cells (Auto) 1.0 /HPF (0-13.0) 02/23/19 17:29 35.2 mg/dL (0.1-20.0) H 02/23/19 17:29 Protein/Creatinin Ratio 7.59 02/23/19 17:29 86 mmol/L 02/23/19 17:29 267 mg/dL (5-11.8) H 02/23/19 17:29 Active Medications - Current Medications Current Medications: Generic Name Dose Route Start Last Admin Trade Name Freq PRN Reason Stop Dose Admin Acetaminophen 650 mg 02/22/19 02:23 Tylenol PO Q4H PRN Pain MILD(1-3)/Fever >100.5/[place] Aspirin 81 mg 02/22/19 10:00 02/23/19 10:31 Baby Aspirin PO 81 mg QDAY CHOLO Administration Carvedilol 3.125 mg 02/22/19 10:00 02/23/19 21:19 Coreg PO 3.125 mg BID CHOLO Administration Furosemide 40 mg 02/22/19 18:00 02/24/19 05:26 Lasix IV 40 mg BID@0600,1800 CHOLO Administration Levothyroxine Sodium 75 mcg 02/24/19 10:00 Synthroid PO QAM CHOLO Ondansetron HCl 4 mg 02/22/19 02:23 Zofran IV Q8H PRN Nausea And Vomiting Pravastatin Sodium 20 mg 02/23/19 22:00 02/23/19 21:19 Pravachol PO 20 mg QHS CHOLO Administration Sodium Chloride 10 ml 02/22/19 10:00 02/23/19 21:19 Sodium Chloride Flush Syringe 10 Ml IV 10 ml BID CHOLO Administration Sodium Chloride 10 ml 02/22/19 02:23 Sodium Chloride Flush Syringe 10 Ml IV PRN PRN LINE FLUSH
[2019-02-24 09:51] LABS: Basophils % (Auto) 0.3 % (0.0-1.8); Eosinophils # (Auto) 0.1 K/mm3 (0.0-0.4); Eosinophils % (Auto) 1.1 % (0.0-4.3); Hematocrit 25.3 % (30.3-42.9); Hemoglobin 8.4 gm/dl (10.1-14.3); Lymphocytes # (Auto) 1.7 K/mm3 (1.2-5.4); Lymphocytes % (Auto) 22.3 % (13.4-35.0); Mean Corpuscular HGB Conc 33 % (30-34); Mean Corpuscular Volume 86 fl (79-97); Monocytes # (Auto) 0.8 K/mm3 (0.0-0.8); Monocytes % (Auto) 10.1 % (0.0-7.3); Platelet Count 379 K/mm3 (140-440); Red Blood Count 2.93 M/mm3 (3.65-5.03); Red Cell Distribution Width 19.7 % (13.2-15.2)
[2019-02-24] MEDS ORDERED: SYNTHROID PO SCH (10:00)
[2019-02-24] MEDS: COREG PO SCH ×2 (10:14→21:35)
[2019-02-24] MEDS: BABY ASPIRIN PO SCH (10:14)
[2019-02-24] MEDS: SODIUM CHLORIDE FLUSH SYRINGE 10 ML IV SCH ×2 (10:15→21:34)
[2019-02-24] MEDS: FOLVITE PO SCH (10:16)
[2019-02-24 10:25] LABS: Calcium 8.3 mg/dL (8.4-10.2)
[2019-02-24] MEDS: ROCEPHIN/NS 1 GM/50 ML 1 GM/50 ML BAG IV SCH (11:50)
--- NOTE | 2019-02-24 13:06 | Progress Note ---
Assessment and Plan 1. Acute kidney injury: APRIL superimposed on CKD in the setting of CHF exacerbation. Baseline renal function is unknown. Renal US showed mild R hydronephrosis. Monitor renal function. Renal prognosis is guarded. Avoid nephrotoxic agents. Meds dosage based on GFR. 2. FEN: Volume overload, IV Lasix. Replete K. Monitor lytes. 3. Mild R hydronephrosis. 4. CHF exacerbation: Followed by Cards. 5. Secondary hyperparathyroidism: Calcitriol. 6. Anemia: POA. 7. HTN. Subjective Date of service: 02/24/19 Interval history: Patient was seen and examined at the bedside. Objective - Vital Signs Vital signs: Vital Signs - 12hr 02/24/19 02/24/19 02/24/19 05:23 08:08 11:22 Temperature 97.9 F 98.2 F 98.2 F Pulse Rate 87 90 101 H Respiratory 20 14 16 Rate Blood Pressure 114/80 109/82 Blood Pressure 124/85 [Right] O2 Sat by Pulse 98 98 99 Oximetry - General Appearance General appearance: well-developed, well-nourished, appears stated age, other (no distress) EENT: ATNC, PERRL, hearing intact, vision intact Neck: supple Respiratory: Present: Clear to Ascultation Cardiology: regular, S1S2, no murmurs Gastrointestinal: normoactive bowel sounds, no tenderness, no distended Integumentary: no rash, warm and dry Neurologic: no focal deficit, no asterixis, alert and oriented x3 Musculoskeletal: other (2+ edema of both LEs noted) Psychiatric: cooperative - Lab 02/24/19 09:20 02/24/19 09:20 Most recent lab results Calcium 8.3 mg/dL (8.4-10.2) L 02/24/19 09:20 35.2 mg/dL (0.1-20.0) H 02/23/19 17:29 86 mmol/L 02/23/19 17:29 267 mg/dL (5-11.8) H 02/23/19 17:29 Medications & Allergies - Medications Allergies/Adverse Reactions: Allergies No Known Allergies Allergy (Verified 02/22/19 00:36) Home Medications: Home Medications Medication Instructions Recorded Confirmed Last Taken Type Atovaquone [Mepron] 2 tsp PO DAILY 02/22/19 02/22/19 02/21/19 History Calcitriol [Rocaltrol] 1 tab PO DAILY 02/22/19 02/22/19 Unknown History Cinacalcet [Sensipar] 30 mg PO QDAY 02/22/19 02/22/19 02/21/19 History Ergocalciferol [Vitamin D2] 1 cap PO WMHS 02/22/19 02/22/19 Unknown History Levothyroxine [Synthroid] 75 mcg PO QAM 02/22/19 02/22/19 Unknown History Lisinopril [Zestril TAB] 20 mg PO QDAY 02/22/19 02/22/19 Unknown History Nicotine [Habitrol] 14 mg TD DAILY 02/22/19 02/22/19 02/21/19 History Omeprazole 20 mg PO DAILY 02/22/19 02/22/19 Unknown History Potassium Chloride [K-Dur] 20 meq PO QDAY 02/22/19 02/22/19 Unknown History Pravastatin [Pravachol] 20 mg PO QHS 02/22/19 02/22/19 Unknown History Sodium Bicarbonate 650 mg PO DAILY 02/22/19 02/22/19 02/21/19 History Torsemide [Demadex] 100 mg PO DAILY 02/22/19 02/22/19 Unknown History Warfarin [Coumadin] 5 mg PO QDAY 02/22/19 02/22/19 02/21/19 History predniSONE [Deltasone] 60 mg PO QDAY 02/22/19 02/22/19 02/21/19 History Active Medications: Generic Name Dose Route Start Last Admin Trade Name Freq PRN Reason Stop Dose Admin Acetaminophen 650 mg 02/22/19 02:23 Tylenol PO Q4H PRN Pain MILD(1-3)/Fever >100.5/[place] Aspirin 81 mg 02/22/19 10:00 02/24/19 10:14 Baby Aspirin PO 81 mg QDAY CHOLO Administration Carvedilol 3.125 mg 02/22/19 10:00 02/24/19 10:14 Coreg PO 3.125 mg BID CHOLO Administration Folic Acid 1 mg 02/24/19 10:00 02/24/19 10:16 Folvite PO 1 mg QDAY CHOLO Administration Furosemide 40 mg 02/22/19 18:00 02/24/19 05:26 Lasix IV 40 mg BID@0600,1800 CHOLO Administration Ceftriaxone Sodium 1 gm in 50 mls @ 100 mls/hr 02/24/19 11:00 02/24/19 11:50 Rocephin/Ns 1 Gm/50 Ml IV 02/27/19 10:59 100 mls/hr Q24HR CHOLO Administration Protocol Levothyroxine Sodium 137 mcg 02/24/19 11:04 Synthroid PO QAM CHOLO Ondansetron HCl 4 mg 02/22/19 02:23 Zofran IV Q8H PRN Nausea And Vomiting Pravastatin Sodium 20 mg 02/23/19 22:00 02/23/19 21:19 Pravachol PO 20 mg QHS CHOLO Administration Sodium Chloride 10 ml 02/22/19 10:00 02/24/19 10:15 Sodium Chloride Flush Syringe 10 Ml IV 10 ml BID CHOLO Administration Sodium Chloride 10 ml 02/22/19 02:23 Sodium Chloride Flush Syringe 10 Ml IV PRN PRN LINE FLUSH
--- NOTE | 2019-02-24 13:12 | Progress Note ---
Assessment and Plan - Patient Problems (1) SOB (shortness of breath) Current Visit: Yes Status: Acute Plan to address problem: We'll continue management of fluid overload as previously outlined. Echocardiogram shows mild left ventricular dysfunction, ejection fraction 45- 50%. Subjective Date of service: 02/24/19 Interval history: Patient is comfortable, no new cardiac complaints. Her lower extremity edema has largely resolved, and she is breathing comfortably supine on bed rest. Objective Vital Signs Temp Pulse Resp BP BP Pulse Ox 02/24/19 11:22 98.2 F 101 H 16 109/82 99 02/24/19 08:08 98.2 F 90 14 114/80 98 02/24/19 05:23 97.9 F 87 20 124/85 98 02/24/19 00:36 98.0 F 82 20 118/80 99 02/23/19 21:19 99 H 139/89 02/23/19 20:07 86 02/23/19 20:06 98.0 F 99 H 20 139/89 97 02/23/19 16:53 98.0 F 81 16 120/82 95 - Physical Examination General: No Apparent Distress HEENT: Positive: PERRL Neck: Positive: neck supple, trachea midline Cardiac: Positive: Reg Rate and Rhythm Lungs: Positive: Decreased Breath Sounds Neuro: Positive: Grossly Intact Abdomen: Positive: Soft Skin: Positive: Clear Extremities: Present: edema (trace) - Labs and Meds CBC 02/24/19 Range/Units 09:20 WBC 7.8 (4.5-11.0) K/mm3 RBC 2.93 L (3.65-5.03) M/mm3 Hgb 8.4 L (10.1-14.3) gm/dl Hct 25.3 L (30.3-42.9) % Plt Count 379 (140-440) K/mm3 Lymph # 1.7 (1.2-5.4) K/mm3 [place] # 0.8 (0.0-0.8) K/mm3 Eos # 0.1 (0.0-0.4) K/mm3 Baso # 0.0 (0.0-0.1) K/mm3 Comprehensive Metabolic Panel 02/24/19 Range/Units 09:20 Sodium 145 (137-145) mmol/L Potassium 3.5 L (3.6-5.0) mmol/L Chloride 109.7 H (98-107) mmol/L Carbon Dioxide 26 (22-30) mmol/L BUN 21 H (7-17) mg/dL Creatinine 2.4 H (0.7-1.2) mg/dL Glucose 101 H (65-100) mg/dL Calcium 8.3 L (8.4-10.2) mg/dL - Imaging and Cardiology EKG: image reviewed
[2019-02-24] MEDS ORDERED: K-DUR PO ONE (14:06)
--- NOTE | 2019-02-24 14:35 | Cat Scan Report ---
PROCEDURE: CT ABDOMEN PELVIS WO CON TECHNIQUE: Axial images obtained and pelvis without intravenous contrast. Sagittal and coronal refor matted images obtained. HISTORY: Hydronephrosis. COMPARISONS: Renal ultrasound February 23, 2019 FINDINGS: Moderate to large bilateral pleural effusion. Bilateral lower lobe atelectasis. Small amount of peric ardial fluid present. Thickness 0.7 cm. There is cardiomegaly. Generalized subcutaneous edema Low volume free fluid Liver, spleen and pancreas unremarkable noncontrast appearance Contracted gallbladder with cholelithiasis. No biliary dilatation Adrenal glands unremarkable. Nonspecific bilateral perinephric stranding. Kidneys demonstrate normal contour. Mild hydronephrosis on the right compared to the left. This correlates with the appearance of prior ultrasound. No renal calculus noted. There are calcifications in the region of the distal right ureter. These are thought to represent phlebolith. No left hydronephrosis. No left calculus. Retroverted uterus. No adnexal mass Atherosclerotic calcification of the aorta. No aneurysm Shotty nonenlarged retroperitoneal lymph nodes No bowel obstruction. No significant diverticulosis. No diverticulitis. Appendix not identified. No r ight lower quadrant inflammatory change. Omentum and mesentery unremarkable No acute bony abnormality IMPRESSION: Bilateral effusion. Low volume free fluid. Subcutaneous edema. Trace pericardial fluid. Findings sugg est anasarca Cholelithiasis. Mild right hydronephrosis similar to prior ultrasound. No specific etiology identified No free air No bowel obstruction. This document is electronically signed by Rene Su MD., February 24 2019 02:33:38 PM ET
[2019-02-24] MEDS: PRAVACHOL PO SCH (21:35)
[2019-02-25] MEDS: LASIX IV SCH ×2 (06:26→18:14)
--- NOTE | 2019-02-25 10:46 | Progress Note ---
Assessment and Plan Shortness of breath No ischemia by MPI this admission LVEF 45-50% by echo Pulmonary edema and cardiomegaly on CXR Non-specific troponin in the setting of renal failure Systemic Hypertension Chronic renal failure Normocytic anemia History of CVA FPC use of coumadin Patient is not sure why she is on anticoagulation No evidence of afib on ECG or tele Hyperthyroidism with exophtalmos Hyperlipidemia Nicotine dependence Quit smoking December 17, 2018 Conservative cardiac management. Subjective Date of service: 02/25/19 Interval history: Patient is resting in bed comfortably. No distress noted. Stable sinus rhythm on telemetry. Objective Vital Signs Temp Pulse Resp BP Pulse Ox 02/25/19 07:52 98.6 F 86 16 103/78 100 02/25/19 04:45 98.0 F 89 18 116/79 100 02/25/19 00:16 98.0 F 93 H 18 125/85 95 02/24/19 21:35 96 H 129/87 02/24/19 21:00 20 98 02/24/19 19:38 98.0 F 96 H 18 129/87 95 02/24/19 19:23 87 02/24/19 11:22 98.2 F 101 H 16 109/82 99 - Physical Examination General: No Apparent Distress HEENT: Positive: PERRL Neck: Positive: trachea midline, Other (exophtalmos) Cardiac: Positive: Reg Rate and Rhythm Lungs: Positive: Decreased Breath Sounds Neuro: Positive: Grossly Intact Abdomen: Positive: Soft Extremities: Present: edema (trace) - Labs and Meds Comprehensive Metabolic Panel 02/25/19 Range/Units 06:04 Sodium 145 (137-145) mmol/L Potassium 3.8 (3.6-5.0) mmol/L Chloride 110.4 H (98-107) mmol/L Carbon Dioxide 27 (22-30) mmol/L BUN 20 H (7-17) mg/dL Creatinine 2.3 H (0.7-1.2) mg/dL Glucose 80 (65-100) mg/dL Calcium 8.0 L (8.4-10.2) mg/dL - Imaging and Cardiology EKG: image reviewed
[2019-02-25] MEDS: BABY ASPIRIN PO SCH (11:09)
[2019-02-25] MEDS: COREG PO SCH ×2 (11:10→21:57)
[2019-02-25] MEDS: FOLVITE PO SCH (11:11)
[2019-02-25] MEDS: SYNTHROID PO SCH (11:11)
[2019-02-25] MEDS: ROCALTROL PO SCH (11:11)
[2019-02-25] MEDS: SODIUM CHLORIDE FLUSH SYRINGE 10 ML IV SCH ×2 (11:12→21:57)
[2019-02-25] MEDS: ROCEPHIN/NS 1 GM/50 ML 1 GM/50 ML BAG IV SCH (11:13)
--- NOTE | 2019-02-25 12:16 | Progress Note ---
Assessment and Plan 1. Acute kidney injury: APRIL superimposed on CKD in the setting of CHF exacerbation. Baseline renal function is unknown. Renal US showed mild R hydronephrosis. Renal function is stable. Monitor renal function. Renal prognosis is guarded. Avoid nephrotoxic agents. Meds dosage based on GFR. 2. FEN: Volume overload, IV Lasix. Replete Phos. Monitor lytes. 3. Heavy proteinuria: Will check DUDLEY, ANCA and Complements. 4. Mild R hydronephrosis: Urology consulted. 5. CHF exacerbation: Followed by Cards. 6. Secondary hyperparathyroidism: Calcitriol. 7. Anemia: POA. 8. HTN. Subjective Date of service: 02/25/19 Interval history: Patient was seen and examined at the bedside. Doing ok. Objective - Vital Signs Vital signs: Vital Signs - 12hr 02/25/19 02/25/19 02/25/19 04:45 07:52 11:10 Temperature 98.0 F 98.6 F Pulse Rate 89 86 90 Respiratory 18 16 Rate Blood Pressure 116/79 103/78 112/80 O2 Sat by Pulse 100 100 Oximetry - General Appearance General appearance: well-developed, well-nourished, appears stated age, other (no distress) EENT: ATNC, PERRL, mucous membranes moist, hearing intact, vision intact Neck: supple Respiratory: Present: Clear to Ascultation Cardiology: regular, S1S2, no murmurs Gastrointestinal: normoactive bowel sounds, no tenderness, no distended Integumentary: no rash, warm and dry Neurologic: no focal deficit, no asterixis, alert and oriented x3 Musculoskeletal: other (2+ edema of both LEs noted) Psychiatric: cooperative - Lab 02/24/19 09:20 02/25/19 06:04 Most recent lab results Calcium 8.0 mg/dL (8.4-10.2) L 02/25/19 06:04 Phosphorus 1.80 mg/dL (2.5-4.5) L 02/25/19 06:04 Magnesium 1.70 mg/dL (1.7-2.3) 02/25/19 06:04 35.2 mg/dL (0.1-20.0) H 02/23/19 17:29 86 mmol/L 02/23/19 17:29 267 mg/dL (5-11.8) H 02/23/19 17:29 Medications & Allergies - Medications Allergies/Adverse Reactions: Allergies No Known Allergies Allergy (Verified 02/22/19 00:36) Home Medications: Home Medications Medication Instructions Recorded Confirmed Last Taken Type Atovaquone [Mepron] 2 tsp PO DAILY 02/22/19 02/22/19 02/21/19 History Calcitriol [Rocaltrol] 1 tab PO DAILY 02/22/19 02/22/19 Unknown History Cinacalcet [Sensipar] 30 mg PO QDAY 02/22/19 02/22/19 02/21/19 History Ergocalciferol [Vitamin D2] 1 cap PO WMHS 02/22/19 02/22/19 Unknown History Levothyroxine [Synthroid] 75 mcg PO QAM 02/22/19 02/22/19 Unknown History Lisinopril [Zestril TAB] 20 mg PO QDAY 02/22/19 02/22/19 Unknown History Nicotine [Habitrol] 14 mg TD DAILY 02/22/19 02/22/19 02/21/19 History Omeprazole 20 mg PO DAILY 02/22/19 02/22/19 Unknown History Potassium Chloride [K-Dur] 20 meq PO QDAY 02/22/19 02/22/19 Unknown History Pravastatin [Pravachol] 20 mg PO QHS 02/22/19 02/22/19 Unknown History Sodium Bicarbonate 650 mg PO DAILY 02/22/19 02/22/19 02/21/19 History Torsemide [Demadex] 100 mg PO DAILY 02/22/19 02/22/19 Unknown History Warfarin [Coumadin] 5 mg PO QDAY 02/22/19 02/22/19 02/21/19 History predniSONE [Deltasone] 60 mg PO QDAY 02/22/19 02/22/19 02/21/19 History Active Medications: Generic Name Dose Route Start Last Admin Trade Name Freq PRN Reason Stop Dose Admin Acetaminophen 650 mg 02/22/19 02:23 Tylenol PO Q4H PRN Pain MILD(1-3)/Fever >100.5/[place] Aspirin 81 mg 02/22/19 10:00 02/25/19 11:09 Baby Aspirin PO 81 mg QDAY CHOLO Administration Calcitriol 0.5 mcg 02/25/19 10:00 02/25/19 11:11 Rocaltrol PO 0.5 mcg QDAY CHOLO Administration Carvedilol 3.125 mg 02/22/19 10:00 02/25/19 11:10 Coreg PO 3.125 mg BID CHOLO Administration Folic Acid 1 mg 02/24/19 10:00 02/25/19 11:11 Folvite PO 1 mg QDAY CHOLO Administration Furosemide 40 mg 02/22/19 18:00 02/25/19 06:26 Lasix IV 40 mg BID@0600,1800 CHOLO Administration Ceftriaxone Sodium 1 gm in 50 mls @ 100 mls/hr 02/24/19 11:00 02/25/19 11:13 Rocephin/Ns 1 Gm/50 Ml IV 02/27/19 10:59 100 mls/hr Q24HR CHOLO Administration Protocol Levothyroxine Sodium 137 mcg 02/24/19 11:04 02/25/19 11:11 Synthroid PO 137 mcg QAM CHOLO Administration Ondansetron HCl 4 mg 02/22/19 02:23 Zofran IV Q8H PRN Nausea And Vomiting Pravastatin Sodium 20 mg 02/23/19 22:00 02/24/19 21:35 Pravachol PO 20 mg QHS CHOLO Administration Sodium Chloride 10 ml 02/22/19 10:00 02/25/19 11:12 Sodium Chloride Flush Syringe 10 Ml IV 10 ml BID CHOLO Administration Sodium Chloride 10 ml 02/22/19 02:23 Sodium Chloride Flush Syringe 10 Ml IV PRN PRN LINE FLUSH
--- NOTE | 2019-02-25 12:24 | Progress Note ---
Assessment and Plan Assessment and plan: 58-year-old woman with history of hypertension, chronic kidney disease, hyperthyroidism, CVA, hyperlipidemia parathyroid comes to the emergency room with complaints of shortness of breath, PND, orthopnea or lower extremity edema. She also complained of chest pain going across her chest which she describes as sharp, worse with breathing, no radiation, intensity 5/10, CAD) exacerbating or relieving factors. She is on chronic warfarin therapy, unclear why. Acute combined diastolic and systolic CHF - Patient is on IV Lasix - Cardiology consult appreciated - Patient denied history of congestive heart failure, but was taking torsemide as an outpatient - Echo was done and showed ejection fraction of 45-50% Chronic renal failure - Nephrology consulted, avoid renal toxins hypothyroidism elevated tsh and low t4 increased synthroid dose enterococcus uti fup cx, abx AOCD, folic acid deficiency TIBC is low, add folate daily transfuse to keep hg above 7 DVT prophylaxis - On heparin Disposition - Continue inpatient care History Interval history: Review of systems Constitutional: No fevers, no malaise, no joint pains CVS: Shortness of breath and pedal edema is improving GI: No abdominal pain, no diarrhea, no vomiting, no constipation Respiratory: No shortness of breath, no wheezing, no coughing Hospitalist Physical - Physical exam Narrative exam: Not in cardiopulmonary distress. The patient appeared well nourished and normally developed. Vital signs as documented. Head exam is unremarkable. No scleral icterus . Neck is without jugular venous distension, thyromegaly, or carotid bruits. Lungs are clear to auscultation. Cardiac exam reveals regular rate and Rhythm. Abdominal exam reveals normal bowel sounds, no masses, no organomegaly and no aortic enlargement. Extremities are nonedematous and both femoral and pedal pulses are normal. WATCH D[employer]ER: Alert and oriented 3. No focal weakness. - Constitutional Vitals: Temp Pulse Resp BP Pulse Ox 98.6 F 90 16 112/80 100 02/25/19 07:52 02/25/19 11:10 02/25/19 07:52 02/25/19 11:10 02/25/19 07:52 General appearance: Present: no acute distress Results - Labs CBC & Chem 7: 02/24/19 09:20 02/28/19 08:12 Labs: Laboratory Last Values WBC 7.8 K/mm3 (4.5-11.0) 02/24/19 09:20 RBC 2.93 M/mm3 (3.65-5.03) L 02/24/19 09:20 Hgb 8.4 gm/dl (10.1-14.3) L 02/24/19 09:20 Hct 25.3 % (30.3-42.9) L 02/24/19 09:20 MCV 86 fl (79-97) 02/24/19 09:20 MCH 29 pg (28-32) 02/24/19 09:20 MCHC 33 % (30-34) 02/24/19 09:20 RDW 19.7 % (13.2-15.2) H 02/24/19 09:20 Plt Count 379 K/mm3 (140-440) 02/24/19 09:20 Lymph % (Auto) 22.3 % (13.4-35.0) 02/24/19 09:20 [place] % (Auto) 10.1 % (0.0-7.3) H 02/24/19 09:20 Eos % (Auto) 1.1 % (0.0-4.3) 02/24/19 09:20 Baso % (Auto) 0.3 % (0.0-1.8) 02/24/19 09:20 Lymph # 1.7 K/mm3 (1.2-5.4) 02/24/19 09:20 [place] # 0.8 K/mm3 (0.0-0.8) 02/24/19 09:20 Eos # 0.1 K/mm3 (0.0-0.4) 02/24/19 09:20 Baso # 0.0 K/mm3 (0.0-0.1) 02/24/19 09:20 Seg Neutrophils % 66.2 % (40.0-70.0) 02/24/19 09:20 Seg Neutrophils # 5.1 K/mm3 (1.8-7.7) 02/24/19 09:20 PT 19.7 Sec. (12.2-14.9) H 02/22/19 06:06 INR 1.56 (0.87-1.13) H 02/22/19 06:06 APTT 40.4 Sec. (24.2-36.6) H 02/22/19 06:06 Sodium 145 mmol/L (137-145) 02/25/19 06:04 Potassium 3.8 mmol/L (3.6-5.0) 02/25/19 06:04 Chloride 110.4 mmol/L (98-107) H 02/25/19 06:04 Carbon Dioxide 27 mmol/L (22-30) 02/25/19 06:04 11 mmol/L 02/25/19 06:04 BUN 20 mg/dL (7-17) H 02/25/19 06:04 2.3 mg/dL (0.7-1.2) H 02/25/19 06:04 Estimated GFR 26 ml/min 02/25/19 06:04 9 % 02/25/19 06:04 Glucose 80 mg/dL (65-100) 02/25/19 06:04 Lactic Acid 1.00 mmol/L (0.7-2.0) 02/21/19 22:48 Calcium 8.0 mg/dL (8.4-10.2) L 02/25/19 06:04 Phosphorus 1.80 mg/dL (2.5-4.5) L 02/25/19 06:04 Magnesium 1.70 mg/dL (1.7-2.3) 02/25/19 06:04 Iron 40 ug/dL (37-170) 02/23/19 14:15 TIBC 76 mcg/dL (250-450) L 02/23/19 14:15 1378.0 ng/mL (13.0-400.0) H 02/23/19 14:15 25 units/L (30-135) L 02/22/19 08:31 CK-MB (CK-2) 1.0 ng/mL (0.0-4.0) 02/22/19 08:31 CK-MB (CK-2) Rel Index 4.0 (0-4) 02/22/19 08:31 0.027 ng/mL (0.00-0.029) 02/22/19 08:31 NT-Pro-B Natriuret Pep 3000 pg/mL (0-900) H 02/21/19 22:48 Triglycerides 111 mg/dL (2-149) 02/21/19 22:40 Cholesterol 165 mg/dL (50-199) 02/21/19 22:40 93 mg/dL (50-130) 02/21/19 22:40 50 mg/dL (40-59) 02/21/19 22:40 3.30 % 02/21/19 22:40 Vitamin B12 > 2000 pg/mL (211-911) H 02/23/19 14:15 6.32 ng/mL (7.3-26.0) L 02/23/19 14:15 TSH 9.630 mlU/mL (0.270-4.200) H 02/22/19 14:52 Free T4 0.43 ng/dL (0.76-1.46) L 02/25/19 06:04 2.2 ug/dL (4.0-12.0) L 02/25/19 06:04 Straw (Yellow) 02/23/19 17:29 Slightly-cloudy (Clear) 02/23/19 17:29 7.0 (5.0-7.0) 02/23/19 17:29 Ur Specific [place] 1.009 (1.003-1.030) 02/23/19 17:29 100 mg/dl mg/dL (Negative) 02/23/19 17:29 50 mg/dL (Negative) 02/23/19 17:29 Neg mg/dL (Negative) 02/23/19 17:29 Neg (Negative) 02/23/19 17:29 Neg (Negative) 02/23/19 17:29 Neg (Negative) 02/23/19 17:29 < 2.0 mg/dL (<2.0) 02/23/19 17:29 Ur Leukocyte Esterase Sm (Negative) 02/23/19 17:29 18.0 /HPF (0.0-6.0) H 02/23/19 17:29 4.0 /HPF (0.0-6.0) 02/23/19 17:29 U Epithel Cells (Auto) 1.0 /HPF (0-13.0) 02/23/19 17:29 35.2 mg/dL (0.1-20.0) H 02/23/19 17:29 Protein/Creatinin Ratio 7.59 02/23/19 17:29 86 mmol/L 02/23/19 17:29 267 mg/dL (5-11.8) H 02/23/19 17:29 Active Medications - Current Medications Current Medications: Generic Name Dose Route Start Last Admin Trade Name Freq PRN Reason Stop Dose Admin Acetaminophen 650 mg 02/22/19 02:23 Tylenol PO Q4H PRN Pain MILD(1-3)/Fever >100.5/[place] Aspirin 81 mg 02/22/19 10:00 02/25/19 11:09 Baby Aspirin PO 81 mg QDAY CHOLO Administration Calcitriol 0.5 mcg 02/25/19 10:00 02/25/19 11:11 Rocaltrol PO 0.5 mcg QDAY CHOLO Administration Carvedilol 3.125 mg 02/22/19 10:00 02/25/19 11:10 Coreg PO 3.125 mg BID CHOLO Administration Folic Acid 1 mg 02/24/19 10:00 02/25/19 11:11 Folvite PO 1 mg QDAY CHOLO Administration Furosemide 40 mg 02/22/19 18:00 02/25/19 06:26 Lasix IV 40 mg BID@0600,1800 CHOLO Administration Ceftriaxone Sodium 1 gm in 50 mls @ 100 mls/hr 02/24/19 11:00 02/25/19 11:13 Rocephin/Ns 1 Gm/50 Ml IV 02/27/19 10:59 100 mls/hr Q24HR CHOLO Administration Protocol Levothyroxine Sodium 137 mcg 02/24/19 11:04 02/25/19 11:11 Synthroid PO 137 mcg QAM CHOLO Administration Ondansetron HCl 4 mg 02/22/19 02:23 Zofran IV Q8H PRN Nausea And Vomiting Pravastatin Sodium 20 mg 02/23/19 22:00 02/24/19 21:35 Pravachol PO 20 mg QHS CHOLO Administration Sodium Chloride 10 ml 02/22/19 10:00 02/25/19 11:12 Sodium Chloride Flush Syringe 10 Ml IV 10 ml BID CHOLO Administration Sodium Chloride 10 ml 02/22/19 02:23 Sodium Chloride Flush Syringe 10 Ml IV PRN PRN LINE FLUSH
[2019-02-25] MEDS ORDERED: PHOS-NAK PO ONE (19:55)
[2019-02-25] MEDS: PRAVACHOL PO SCH (21:57)
[2019-02-26] MEDS: LASIX IV SCH ×2 (06:55→18:04)
[2019-02-26 08:14] LABS: Calcium 8.3 mg/dL (8.4-10.2)
[2019-02-26] MEDS: COREG PO SCH ×2 (10:49→21:58)
[2019-02-26] MEDS: BABY ASPIRIN PO SCH (10:49)
[2019-02-26] MEDS: SYNTHROID PO SCH (10:49)
[2019-02-26] MEDS: FOLVITE PO SCH (10:49)
[2019-02-26] MEDS: SODIUM CHLORIDE FLUSH SYRINGE 10 ML IV SCH ×2 (10:50→21:58)
--- NOTE | 2019-02-26 10:50 | Progress Note ---
Assessment and Plan 1. Acute kidney injury: APRIL superimposed on CKD in the setting of CHF exacerbation. Baseline renal function is unknown. Renal US showed mild R hydronephrosis. Renal function is stable. Monitor renal function. Renal prognosis is guarded. Avoid nephrotoxic agents. Meds dosage based on GFR. 2. FEN: Volume overload, diuresing well on IV Lasix. Monitor lytes. 3. Heavy proteinuria: DUDLEY, ANCA, Complements and SPEP pending. 4. Mild R hydronephrosis: Urology consulted. 5. CHF exacerbation: Followed by Cards. 6. Secondary hyperparathyroidism: Calcitriol. 7. Anemia: POA. 8. HTN. Subjective Date of service: 02/26/19 Interval history: Patient was seen and examined at the bedside. Doing ok. Objective - Vital Signs Vital signs: Vital Signs - 12hr 02/26/19 02/26/19 00:24 05:23 Temperature 98.2 F 98.0 F Pulse Rate 79 81 Respiratory 17 20 Rate Blood Pressure 121/85 130/96 O2 Sat by Pulse 98 97 Oximetry - General Appearance General appearance: well-developed, well-nourished, appears stated age, other (no distress) EENT: ATNC, PERRL, hearing intact, vision intact Neck: supple Respiratory: Present: Clear to Ascultation Cardiology: regular, S1S2, no murmurs Gastrointestinal: normoactive bowel sounds, no tenderness, no distended Integumentary: no rash, warm and dry Neurologic: no focal deficit, no asterixis, alert and oriented x3 Musculoskeletal: other (1 to 2+ edema of both LEs noted) Psychiatric: cooperative - Lab 02/24/19 09:20 02/26/19 06:41 Most recent lab results Calcium 8.3 mg/dL (8.4-10.2) L 02/26/19 06:41 Phosphorus 2.70 mg/dL (2.5-4.5) D 02/26/19 06:41 Magnesium 1.70 mg/dL (1.7-2.3) 02/26/19 06:41 35.2 mg/dL (0.1-20.0) H 02/23/19 17:29 86 mmol/L 02/23/19 17:29 267 mg/dL (5-11.8) H 02/23/19 17:29 Medications & Allergies - Medications Allergies/Adverse Reactions: Allergies No Known Allergies Allergy (Verified 02/22/19 00:36) Home Medications: Home Medications Medication Instructions Recorded Confirmed Last Taken Type Atovaquone [Mepron] 2 tsp PO DAILY 02/22/19 02/22/19 02/21/19 History Calcitriol [Rocaltrol] 1 tab PO DAILY 02/22/19 02/22/19 Unknown History Cinacalcet [Sensipar] 30 mg PO QDAY 02/22/19 02/22/19 02/21/19 History Ergocalciferol [Vitamin D2] 1 cap PO WMHS 02/22/19 02/22/19 Unknown History Levothyroxine [Synthroid] 75 mcg PO QAM 02/22/19 02/22/19 Unknown History Lisinopril [Zestril TAB] 20 mg PO QDAY 02/22/19 02/22/19 Unknown History Nicotine [Habitrol] 14 mg TD DAILY 02/22/19 02/22/19 02/21/19 History Omeprazole 20 mg PO DAILY 02/22/19 02/22/19 Unknown History Potassium Chloride [K-Dur] 20 meq PO QDAY 02/22/19 02/22/19 Unknown History Pravastatin [Pravachol] 20 mg PO QHS 02/22/19 02/22/19 Unknown History Sodium Bicarbonate 650 mg PO DAILY 02/22/19 02/22/19 02/21/19 History Torsemide [Demadex] 100 mg PO DAILY 02/22/19 02/22/19 Unknown History Warfarin [Coumadin] 5 mg PO QDAY 02/22/19 02/22/19 02/21/19 History predniSONE [Deltasone] 60 mg PO QDAY 02/22/19 02/22/19 02/21/19 History Active Medications: Generic Name Dose Route Start Last Admin Trade Name Freq PRN Reason Stop Dose Admin Acetaminophen 650 mg 02/22/19 02:23 02/25/19 20:28 Tylenol PO 650 mg Q4H PRN Administration Pain MILD(1-3)/Fever >100.5/[place] Aspirin 81 mg 02/22/19 10:00 02/25/19 11:09 Baby Aspirin PO 81 mg QDAY CHOLO Administration Calcitriol 0.5 mcg 02/25/19 10:00 02/25/19 11:11 Rocaltrol PO 0.5 mcg QDAY CHOLO Administration Carvedilol 3.125 mg 02/22/19 10:00 02/25/19 21:57 Coreg PO 3.125 mg BID CHOLO Administration Folic Acid 1 mg 02/24/19 10:00 02/25/19 11:11 Folvite PO 1 mg QDAY CHOLO Administration Furosemide 40 mg 02/22/19 18:00 02/26/19 06:55 Lasix IV 40 mg BID@0600,1800 CHOLO Administration Ceftriaxone Sodium 1 gm in 50 mls @ 100 mls/hr 02/24/19 11:00 02/25/19 11:13 Rocephin/Ns 1 Gm/50 Ml IV 02/27/19 10:59 100 mls/hr Q24HR CHOLO Administration Protocol Levothyroxine Sodium 137 mcg 02/24/19 11:04 02/25/19 11:11 Synthroid PO 137 mcg QAM CHOLO Administration Ondansetron HCl 4 mg 02/22/19 02:23 Zofran IV Q8H PRN Nausea And Vomiting Pravastatin Sodium 20 mg 02/23/19 22:00 02/25/19 21:57 Pravachol PO 20 mg QHS CHOLO Administration Sodium Chloride 10 ml 02/22/19 10:00 02/25/19 21:57 Sodium Chloride Flush Syringe 10 Ml IV 10 ml BID CHOLO Administration Sodium Chloride 10 ml 02/22/19 02:23 Sodium Chloride Flush Syringe 10 Ml IV PRN PRN LINE FLUSH
--- NOTE | 2019-02-26 11:42 | Progress Note ---
Assessment and Plan Shortness of breath No ischemia by MPI this admission LVEF 45-50% by echo Pulmonary edema and cardiomegaly on CXR Non-specific troponin in the setting of renal failure Systemic Hypertension Chronic renal failure Normocytic anemia History of CVA MCC use of coumadin Patient is not sure why she is on anticoagulation No evidence of afib on ECG or tele Hyperthyroidism with exophtalmos Hyperlipidemia Nicotine dependence Quit smoking December 17, 2018 Conservative cardiac management. Subjective Date of service: 02/26/19 Interval history: Patient is resting in bed comfortably. She has no complaints Stable sinus rhythm on telemetry. Objective Vital Signs Temp Pulse Pulse Resp BP BP Pulse Ox 02/26/19 10:00 79 81 97 02/26/19 05:23 98.0 F 81 20 130/96 97 02/26/19 00:24 98.2 F 79 17 121/85 98 02/25/19 21:58 122/85 02/25/19 21:57 87 122/85 02/25/19 21:04 97.8 F 88 18 138/95 99 02/25/19 20:28 20 02/25/19 20:25 99.5 F 95 H 20 124/89 98 02/25/19 19:06 89 124/87 02/25/19 19:05 124/87 02/25/19 18:06 164/112 02/25/19 17:06 85 02/25/19 12:49 128/90 02/25/19 12:00 97.9 F 78 19 118/56 99 - Physical Examination General: No Apparent Distress HEENT: Positive: PERRL Neck: Positive: trachea midline, Other (exophtalmos) Cardiac: Positive: Reg Rate and Rhythm Neuro: Positive: Grossly Intact Abdomen: Positive: Soft Extremities: Absent: edema - Labs and Meds Comprehensive Metabolic Panel 02/26/19 Range/Units 06:41 Sodium 142 (137-145) mmol/L Potassium 3.9 (3.6-5.0) mmol/L Chloride 106.2 (98-107) mmol/L Carbon Dioxide 31 H (22-30) mmol/L BUN 20 H (7-17) mg/dL Creatinine 2.3 H (0.7-1.2) mg/dL Glucose 71 (65-100) mg/dL Calcium 8.3 L (8.4-10.2) mg/dL
--- NOTE | 2019-02-26 11:42 | Progress Note ---
Assessment and Plan Assessment and plan: 58-year-old woman with history of hypertension, chronic kidney disease, hyperthyroidism, CVA, hyperlipidemia parathyroid comes to the emergency room with complaints of shortness of breath, PND, orthopnea or lower extremity edema. She also complained of chest pain going across her chest which she describes as sharp, worse with breathing, no radiation, intensity 5/10, CAD) exacerbating or relieving factors. She is on chronic warfarin therapy, unclear why. Acute combined diastolic and systolic CHF - Patient is on IV Lasix - Cardiology consult appreciated - Patient denied history of congestive heart failure, but was taking torsemide as an outpatient - Echo was done and showed ejection fraction of 45-50% Chronic renal failure - Nephrology consulted, avoid renal toxins hypothyroidism elevated tsh and low t4 increased synthroid dose enterococcus uti fup cx, abx AOCD, folic acid deficiency TIBC is low, add folate daily transfuse to keep hg above 7 DVT prophylaxis - On heparin Disposition - Continue inpatient care History Interval history: Review of systems Constitutional: No fevers, no malaise, no joint pains CVS: Shortness of breath and pedal edema is improving GI: No abdominal pain, no diarrhea, no vomiting, no constipation Respiratory: No shortness of breath, no wheezing, no coughing Hospitalist Physical - Physical exam Narrative exam: Not in cardiopulmonary distress. The patient appeared well nourished and normally developed. Vital signs as documented. Head exam is unremarkable. No scleral icterus . jvd noted crackles in lung bases Cardiac exam reveals regular rate and Rhythm. Abdominal exam reveals normal bowel sounds, no masses, no organomegaly and no aortic enlargement. 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 No focal weakness. - Constitutional Vitals: Temp Pulse Resp BP Pulse Ox 98.0 F 81 20 130/96 97 02/26/19 05:23 02/26/19 10:00 02/26/19 05:23 02/26/19 05:23 02/26/19 10:00 General appearance: Present: no acute distress Results - Labs CBC & Chem 7: 02/24/19 09:20 02/28/19 08:12 Labs: Laboratory Last Values WBC 7.8 K/mm3 (4.5-11.0) 02/24/19 09:20 RBC 2.93 M/mm3 (3.65-5.03) L 02/24/19 09:20 Hgb 8.4 gm/dl (10.1-14.3) L 02/24/19 09:20 Hct 25.3 % (30.3-42.9) L 02/24/19 09:20 MCV 86 fl (79-97) 02/24/19 09:20 MCH 29 pg (28-32) 02/24/19 09:20 MCHC 33 % (30-34) 02/24/19 09:20 RDW 19.7 % (13.2-15.2) H 02/24/19 09:20 Plt Count 379 K/mm3 (140-440) 02/24/19 09:20 Lymph % (Auto) 22.3 % (13.4-35.0) 02/24/19 09:20 [place] % (Auto) 10.1 % (0.0-7.3) H 02/24/19 09:20 Eos % (Auto) 1.1 % (0.0-4.3) 02/24/19 09:20 Baso % (Auto) 0.3 % (0.0-1.8) 02/24/19 09:20 Lymph # 1.7 K/mm3 (1.2-5.4) 02/24/19 09:20 [place] # 0.8 K/mm3 (0.0-0.8) 02/24/19 09:20 Eos # 0.1 K/mm3 (0.0-0.4) 02/24/19 09:20 Baso # 0.0 K/mm3 (0.0-0.1) 02/24/19 09:20 Seg Neutrophils % 66.2 % (40.0-70.0) 02/24/19 09:20 Seg Neutrophils # 5.1 K/mm3 (1.8-7.7) 02/24/19 09:20 PT 19.7 Sec. (12.2-14.9) H 02/22/19 06:06 INR 1.56 (0.87-1.13) H 02/22/19 06:06 APTT 40.4 Sec. (24.2-36.6) H 02/22/19 06:06 Sodium 142 mmol/L (137-145) 02/26/19 06:41 Potassium 3.9 mmol/L (3.6-5.0) 02/26/19 06:41 Chloride 106.2 mmol/L (98-107) 02/26/19 06:41 Carbon Dioxide 31 mmol/L (22-30) H 02/26/19 06:41 9 mmol/L 02/26/19 06:41 BUN 20 mg/dL (7-17) H 02/26/19 06:41 2.3 mg/dL (0.7-1.2) H 02/26/19 06:41 Estimated GFR 26 ml/min 02/26/19 06:41 9 % 02/26/19 06:41 Glucose 71 mg/dL (65-100) 02/26/19 06:41 Lactic Acid 1.00 mmol/L (0.7-2.0) 02/21/19 22:48 Calcium 8.3 mg/dL (8.4-10.2) L 02/26/19 06:41 Phosphorus 2.70 mg/dL (2.5-4.5) D 02/26/19 06:41 Magnesium 1.70 mg/dL (1.7-2.3) 02/26/19 06:41 Iron 40 ug/dL (37-170) 02/23/19 14:15 TIBC 76 mcg/dL (250-450) L 02/23/19 14:15 1378.0 ng/mL (13.0-400.0) H 02/23/19 14:15 25 units/L (30-135) L 02/22/19 08:31 CK-MB (CK-2) 1.0 ng/mL (0.0-4.0) 02/22/19 08:31 CK-MB (CK-2) Rel Index 4.0 (0-4) 02/22/19 08:31 0.027 ng/mL (0.00-0.029) 02/22/19 08:31 NT-Pro-B Natriuret Pep 3000 pg/mL (0-900) H 02/21/19 22:48 Triglycerides 111 mg/dL (2-149) 02/21/19 22:40 Cholesterol 165 mg/dL (50-199) 02/21/19 22:40 93 mg/dL (50-130) 02/21/19 22:40 50 mg/dL (40-59) 02/21/19 22:40 3.30 % 02/21/19 22:40 Vitamin B12 > 2000 pg/mL (211-911) H 02/23/19 14:15 6.32 ng/mL (7.3-26.0) L 02/23/19 14:15 TSH 9.630 mlU/mL (0.270-4.200) H 02/22/19 14:52 Free T4 0.43 ng/dL (0.76-1.46) L 02/25/19 06:04 2.2 ug/dL (4.0-12.0) L 02/25/19 06:04 Straw (Yellow) 02/23/19 17:29 Slightly-cloudy (Clear) 02/23/19 17:29 7.0 (5.0-7.0) 02/23/19 17:29 Ur Specific [place] 1.009 (1.003-1.030) 02/23/19 17:29 100 mg/dl mg/dL (Negative) 02/23/19 17:29 50 mg/dL (Negative) 02/23/19 17:29 Neg mg/dL (Negative) 02/23/19 17:29 Neg (Negative) 02/23/19 17:29 Neg (Negative) 02/23/19 17:29 Neg (Negative) 02/23/19 17:29 < 2.0 mg/dL (<2.0) 02/23/19 17:29 Ur Leukocyte Esterase Sm (Negative) 02/23/19 17:29 18.0 /HPF (0.0-6.0) H 02/23/19 17:29 4.0 /HPF (0.0-6.0) 02/23/19 17:29 U Epithel Cells (Auto) 1.0 /HPF (0-13.0) 02/23/19 17:29 35.2 mg/dL (0.1-20.0) H 02/23/19 17:29 Protein/Creatinin Ratio 7.59 02/23/19 17:29 86 mmol/L 02/23/19 17:29 267 mg/dL (5-11.8) H 02/23/19 17:29 Active Medications - Current Medications Current Medications: Generic Name Dose Route Start Last Admin Trade Name Freq PRN Reason Stop Dose Admin Acetaminophen 650 mg 02/22/19 02:23 02/25/19 20:28 Tylenol PO 650 mg Q4H PRN Administration Pain MILD(1-3)/Fever >100.5/[place] Aspirin 81 mg 02/22/19 10:00 02/26/19 10:49 Baby Aspirin PO 81 mg QDAY CHOLO Administration Calcitriol 0.5 mcg 02/25/19 10:00 02/25/19 11:11 Rocaltrol PO 0.5 mcg QDAY CHOLO Administration Carvedilol 3.125 mg 02/22/19 10:00 02/26/19 10:49 Coreg PO 3.125 mg BID CHOLO Administration Folic Acid 1 mg 02/24/19 10:00 02/26/19 10:49 Folvite PO 1 mg QDAY CHOLO Administration Furosemide 40 mg 02/22/19 18:00 02/26/19 06:55 Lasix IV 40 mg BID@0600,1800 CHOLO Administration Ceftriaxone Sodium 1 gm in 50 mls @ 100 mls/hr 02/24/19 11:00 02/25/19 11:13 Rocephin/Ns 1 Gm/50 Ml IV 02/27/19 10:59 100 mls/hr Q24HR CHOLO Administration Protocol Levothyroxine Sodium 137 mcg 02/24/19 11:04 02/26/19 10:49 Synthroid PO 137 mcg QAM CHOLO Administration Ondansetron HCl 4 mg 02/22/19 02:23 Zofran IV Q8H PRN Nausea And Vomiting Pravastatin Sodium 20 mg 02/23/19 22:00 02/25/19 21:57 Pravachol PO 20 mg QHS CHOLO Administration Sodium Chloride 10 ml 02/22/19 10:00 02/26/19 10:50 Sodium Chloride Flush Syringe 10 Ml IV 10 ml BID CHOLO Administration Sodium Chloride 10 ml 02/22/19 02:23 Sodium Chloride Flush Syringe 10 Ml IV PRN PRN LINE FLUSH
[2019-02-26] MEDS: ROCALTROL PO SCH (18:05)
[2019-02-26] MEDS: ROCEPHIN/NS 1 GM/50 ML 1 GM/50 ML BAG IV SCH (18:05)
[2019-02-26] MEDS: PRAVACHOL PO SCH (21:58)
[2019-02-27] MEDS: LASIX IV SCH ×2 (05:38→18:35)
[2019-02-27 06:58] LABS: Calcium 8.9 mg/dL (8.4-10.2)
--- NOTE | 2019-02-27 09:27 | Progress Note ---
Assessment and Plan 1. Acute kidney injury: APRIL superimposed on CKD in the setting of CHF exacerbation. Baseline renal function is unknown. Renal US showed mild R hydronephrosis. Renal function is improving. Monitor renal function. Renal prognosis is guarded. Avoid nephrotoxic agents. Meds dosage based on GFR. 2. FEN: Volume overload, diuresing well on IV Lasix. Monitor lytes. 3. Heavy proteinuria: DUDLEY, ANCA, Complements and SPEP pending. 4. Mild R hydronephrosis: Urology consulted. 5. CHF exacerbation: Followed by Cards. 6. Secondary hyperparathyroidism: Calcitriol. 7. Anemia: POA. 8. HTN. Subjective Date of service: 02/27/19 Interval history: Patient was seen and examined at the bedside. Doing ok. Objective - Vital Signs Vital signs: Vital Signs - 12hr 02/26/19 02/26/19 02/27/19 21:57 23:38 05:05 Temperature 98.4 F 98.3 F 98.2 F Pulse Rate 94 H 83 82 Respiratory 18 18 18 Rate Blood Pressure 128/95 125/89 122/88 O2 Sat by Pulse 97 99 98 Oximetry - General Appearance General appearance: well-developed, well-nourished, appears stated age, other (no distress) EENT: ATNC, PERRL, hearing intact, vision intact Neck: supple Respiratory: Present: Clear to Ascultation Cardiology: S1S2, no murmurs Gastrointestinal: normoactive bowel sounds, no tenderness, no distended Integumentary: no rash, warm and dry Neurologic: no focal deficit, no asterixis, alert and oriented x3 Musculoskeletal: other (2+ edema of both LEs noted) - Lab 02/24/19 09:20 02/27/19 05:51 Most recent lab results Calcium 8.9 mg/dL (8.4-10.2) 02/27/19 05:51 Phosphorus 2.70 mg/dL (2.5-4.5) D 02/26/19 06:41 Magnesium 1.70 mg/dL (1.7-2.3) 02/26/19 06:41 35.2 mg/dL (0.1-20.0) H 02/23/19 17:29 86 mmol/L 02/23/19 17:29 267 mg/dL (5-11.8) H 02/23/19 17:29 Medications & Allergies - Medications Allergies/Adverse Reactions: Allergies No Known Allergies Allergy (Verified 02/22/19 00:36) Home Medications: Home Medications Medication Instructions Recorded Confirmed Last Taken Type Atovaquone [Mepron] 2 tsp PO DAILY 02/22/19 02/22/19 02/21/19 History Calcitriol [Rocaltrol] 1 tab PO DAILY 02/22/19 02/22/19 Unknown History Cinacalcet [Sensipar] 30 mg PO QDAY 02/22/19 02/22/19 02/21/19 History Ergocalciferol [Vitamin D2] 1 cap PO WMHS 02/22/19 02/22/19 Unknown History Levothyroxine [Synthroid] 75 mcg PO QAM 02/22/19 02/22/19 Unknown History Lisinopril [Zestril TAB] 20 mg PO QDAY 02/22/19 02/22/19 Unknown History Nicotine [Habitrol] 14 mg TD DAILY 02/22/19 02/22/19 02/21/19 History Omeprazole 20 mg PO DAILY 02/22/19 02/22/19 Unknown History Potassium Chloride [K-Dur] 20 meq PO QDAY 02/22/19 02/22/19 Unknown History Pravastatin [Pravachol] 20 mg PO QHS 02/22/19 02/22/19 Unknown History Sodium Bicarbonate 650 mg PO DAILY 02/22/19 02/22/19 02/21/19 History Torsemide [Demadex] 100 mg PO DAILY 02/22/19 02/22/19 Unknown History Warfarin [Coumadin] 5 mg PO QDAY 02/22/19 02/22/19 02/21/19 History predniSONE [Deltasone] 60 mg PO QDAY 02/22/19 02/22/19 02/21/19 History Active Medications: Generic Name Dose Route Start Last Admin Trade Name Freq PRN Reason Stop Dose Admin Acetaminophen 650 mg 02/22/19 02:23 02/25/19 20:28 Tylenol PO 650 mg Q4H PRN Administration Pain MILD(1-3)/Fever >100.5/[place] Aspirin 81 mg 02/22/19 10:00 02/26/19 10:49 Baby Aspirin PO 81 mg QDAY CHOLO Administration Calcitriol 0.5 mcg 02/25/19 10:00 02/26/19 18:05 Rocaltrol PO 0.5 mcg QDAY CHOLO Administration Carvedilol 3.125 mg 02/22/19 10:00 02/26/19 21:58 Coreg PO 3.125 mg BID CHOLO Administration Folic Acid 1 mg 02/24/19 10:00 02/26/19 10:49 Folvite PO 1 mg QDAY CHOLO Administration Furosemide 40 mg 02/22/19 18:00 02/27/19 05:38 Lasix IV 40 mg BID@0600,1800 CHOLO Administration Ceftriaxone Sodium 1 gm in 50 mls @ 100 mls/hr 02/24/19 11:00 02/26/19 18:05 Rocephin/Ns 1 Gm/50 Ml IV 02/27/19 10:59 100 mls/hr Q24HR CHOLO Administration Protocol Levothyroxine Sodium 137 mcg 02/24/19 11:04 02/26/19 10:49 Synthroid PO 137 mcg QAM CHOLO Administration Ondansetron HCl 4 mg 02/22/19 02:23 Zofran IV Q8H PRN Nausea And Vomiting Pravastatin Sodium 20 mg 02/23/19 22:00 02/26/19 21:58 Pravachol PO 20 mg QHS CHOLO Administration Sodium Chloride 10 ml 02/22/19 10:00 02/26/19 21:58 Sodium Chloride Flush Syringe 10 Ml IV 10 ml BID CHOLO Administration Sodium Chloride 10 ml 02/22/19 02:23 Sodium Chloride Flush Syringe 10 Ml IV PRN PRN LINE FLUSH
[2019-02-27] MEDS: ROCEPHIN/NS 1 GM/50 ML 1 GM/50 ML BAG IV SCH (10:15)
[2019-02-27] MEDS: BABY ASPIRIN PO SCH (10:16)
[2019-02-27] MEDS: SYNTHROID PO SCH (10:16)
[2019-02-27] MEDS: FOLVITE PO SCH (10:16)
[2019-02-27] MEDS: ROCALTROL PO SCH (10:17)
[2019-02-27] MEDS: COREG PO SCH ×2 (10:17→21:28)
[2019-02-27] MEDS: SODIUM CHLORIDE FLUSH SYRINGE 10 ML IV SCH ×2 (10:18→21:28)
--- NOTE | 2019-02-27 13:32 | Progress Note ---
Assessment and Plan Assessment and plan: 58-year-old woman with history of hypertension, chronic kidney disease, hyperthyroidism, CVA, hyperlipidemia parathyroid comes to the emergency room with complaints of shortness of breath, PND, orthopnea or lower extremity edema. She also complained of chest pain going across her chest which she describes as sharp, worse with breathing, no radiation, intensity 5/10, CAD) exacerbating or relieving factors. She is on chronic warfarin therapy, unclear why. Acute combined diastolic and systolic CHF - Patient is on IV Lasix - Cardiology consult appreciated - Patient denied history of congestive heart failure, but was taking torsemide as an outpatient - Echo was done and showed ejection fraction of 45-50% Chronic renal failure - Nephrology consulted, avoid renal toxins hypothyroidism elevated tsh and low t4 increased synthroid dose enterococcus uti fup cx, abx AOCD, folic acid deficiency TIBC is low, add folate daily transfuse to keep hg above 7 DVT prophylaxis - On heparin Disposition - Continue inpatient care History Interval history: Review of systems Constitutional: No fevers, no malaise, no joint pains CVS: Shortness of breath and pedal edema is improving GI: No abdominal pain, no diarrhea, no vomiting, no constipation Respiratory: No shortness of breath, no wheezing, no coughing Hospitalist Physical - Physical exam Narrative exam: Not in cardiopulmonary distress. The patient appeared well nourished and normally developed. Vital signs as documented. Head exam is unremarkable. No scleral icterus . jvd noted crackles in lung bases Cardiac exam reveals regular rate and Rhythm. Abdominal exam reveals normal bowel sounds, no masses, no organomegaly and no aortic enlargement. 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 No focal weakness. - Constitutional Vitals: Temp Pulse Resp BP Pulse Ox 98.9 F 87 22 111/81 100 02/27/19 11:01 02/27/19 11:01 02/27/19 11:01 02/27/19 11:01 02/27/19 11:01 General appearance: Present: no acute distress Results - Labs CBC & Chem 7: 02/24/19 09:20 02/28/19 08:12 Labs: Laboratory Last Values WBC 7.8 K/mm3 (4.5-11.0) 02/24/19 09:20 RBC 2.93 M/mm3 (3.65-5.03) L 02/24/19 09:20 Hgb 8.4 gm/dl (10.1-14.3) L 02/24/19 09:20 Hct 25.3 % (30.3-42.9) L 02/24/19 09:20 MCV 86 fl (79-97) 02/24/19 09:20 MCH 29 pg (28-32) 02/24/19 09:20 MCHC 33 % (30-34) 02/24/19 09:20 RDW 19.7 % (13.2-15.2) H 02/24/19 09:20 Plt Count 379 K/mm3 (140-440) 02/24/19 09:20 Lymph % (Auto) 22.3 % (13.4-35.0) 02/24/19 09:20 [place] % (Auto) 10.1 % (0.0-7.3) H 02/24/19 09:20 Eos % (Auto) 1.1 % (0.0-4.3) 02/24/19 09:20 Baso % (Auto) 0.3 % (0.0-1.8) 02/24/19 09:20 Lymph # 1.7 K/mm3 (1.2-5.4) 02/24/19 09:20 [place] # 0.8 K/mm3 (0.0-0.8) 02/24/19 09:20 Eos # 0.1 K/mm3 (0.0-0.4) 02/24/19 09:20 Baso # 0.0 K/mm3 (0.0-0.1) 02/24/19 09:20 Seg Neutrophils % 66.2 % (40.0-70.0) 02/24/19 09:20 Seg Neutrophils # 5.1 K/mm3 (1.8-7.7) 02/24/19 09:20 PT 19.7 Sec. (12.2-14.9) H 02/22/19 06:06 INR 1.56 (0.87-1.13) H 02/22/19 06:06 APTT 40.4 Sec. (24.2-36.6) H 02/22/19 06:06 Sodium 142 mmol/L (137-145) 02/27/19 05:51 Potassium 3.9 mmol/L (3.6-5.0) 02/27/19 05:51 Chloride 103.1 mmol/L (98-107) 02/27/19 05:51 Carbon Dioxide 32 mmol/L (22-30) H 02/27/19 05:51 11 mmol/L 02/27/19 05:51 BUN 19 mg/dL (7-17) H 02/27/19 05:51 2.0 mg/dL (0.7-1.2) H 02/27/19 05:51 Estimated GFR 31 ml/min 02/27/19 05:51 10 % 02/27/19 05:51 Glucose 74 mg/dL (65-100) 02/27/19 05:51 Lactic Acid 1.00 mmol/L (0.7-2.0) 02/21/19 22:48 Calcium 8.9 mg/dL (8.4-10.2) 02/27/19 05:51 Phosphorus 2.70 mg/dL (2.5-4.5) D 02/26/19 06:41 Magnesium 1.70 mg/dL (1.7-2.3) 02/26/19 06:41 Iron 40 ug/dL (37-170) 02/23/19 14:15 TIBC 76 mcg/dL (250-450) L 02/23/19 14:15 1378.0 ng/mL (13.0-400.0) H 02/23/19 14:15 25 units/L (30-135) L 02/22/19 08:31 CK-MB (CK-2) 1.0 ng/mL (0.0-4.0) 02/22/19 08:31 CK-MB (CK-2) Rel Index 4.0 (0-4) 02/22/19 08:31 0.027 ng/mL (0.00-0.029) 02/22/19 08:31 NT-Pro-B Natriuret Pep 3000 pg/mL (0-900) H 02/21/19 22:48 Triglycerides 111 mg/dL (2-149) 02/21/19 22:40 Cholesterol 165 mg/dL (50-199) 02/21/19 22:40 93 mg/dL (50-130) 02/21/19 22:40 50 mg/dL (40-59) 02/21/19 22:40 3.30 % 02/21/19 22:40 Vitamin B12 > 2000 pg/mL (211-911) H 02/23/19 14:15 6.32 ng/mL (7.3-26.0) L 02/23/19 14:15 TSH 9.630 mlU/mL (0.270-4.200) H 02/22/19 14:52 Free T4 0.43 ng/dL (0.76-1.46) L 02/25/19 06:04 2.2 ug/dL (4.0-12.0) L 02/25/19 06:04 Straw (Yellow) 02/23/19 17:29 Slightly-cloudy (Clear) 02/23/19 17:29 7.0 (5.0-7.0) 02/23/19 17:29 Ur Specific [place] 1.009 (1.003-1.030) 02/23/19 17:29 100 mg/dl mg/dL (Negative) 02/23/19 17:29 50 mg/dL (Negative) 02/23/19 17:29 Neg mg/dL (Negative) 02/23/19 17:29 Neg (Negative) 02/23/19 17:29 Neg (Negative) 02/23/19 17:29 Neg (Negative) 02/23/19 17:29 < 2.0 mg/dL (<2.0) 02/23/19 17:29 Ur Leukocyte Esterase Sm (Negative) 02/23/19 17:29 18.0 /HPF (0.0-6.0) H 02/23/19 17:29 4.0 /HPF (0.0-6.0) 02/23/19 17:29 U Epithel Cells (Auto) 1.0 /HPF (0-13.0) 02/23/19 17:29 35.2 mg/dL (0.1-20.0) H 02/23/19 17:29 Protein/Creatinin Ratio 7.59 02/23/19 17:29 86 mmol/L 02/23/19 17:29 267 mg/dL (5-11.8) H 02/23/19 17:29 Active Medications - Current Medications Current Medications: Generic Name Dose Route Start Last Admin Trade Name Freq PRN Reason Stop Dose Admin Acetaminophen 650 mg 02/22/19 02:23 02/25/19 20:28 Tylenol PO 650 mg Q4H PRN Administration Pain MILD(1-3)/Fever >100.5/[place] Aspirin 81 mg 02/22/19 10:00 02/27/19 10:16 Baby Aspirin PO 81 mg QDAY CHOLO Administration Calcitriol 0.5 mcg 02/25/19 10:00 02/27/19 10:17 Rocaltrol PO 0.5 mcg QDAY CHOLO Administration Carvedilol 3.125 mg 02/22/19 10:00 02/27/19 10:17 Coreg PO Not Given BID CHOLO Folic Acid 1 mg 02/24/19 10:00 02/27/19 10:16 Folvite PO 1 mg QDAY CHOLO Administration Furosemide 40 mg 02/22/19 18:00 02/27/19 05:38 Lasix IV 40 mg BID@0600,1800 CHOLO Administration Levothyroxine Sodium 137 mcg 02/24/19 11:04 02/27/19 10:16 Synthroid PO 137 mcg QAM CHOLO Administration Ondansetron HCl 4 mg 02/22/19 02:23 Zofran IV Q8H PRN Nausea And Vomiting Pravastatin Sodium 20 mg 02/23/19 22:00 02/26/19 21:58 Pravachol PO 20 mg QHS CHOLO Administration Sodium Chloride 10 ml 02/22/19 10:00 02/27/19 10:18 Sodium Chloride Flush Syringe 10 Ml IV 10 ml BID CHOLO Administration Sodium Chloride 10 ml 02/22/19 02:23 Sodium Chloride Flush Syringe 10 Ml IV PRN PRN LINE FLUSH
[2019-02-27] MEDS: PRAVACHOL PO SCH (21:28)
[2019-02-28] MEDS: LASIX IV SCH (06:27)
[2019-02-28 09:10] LABS: Calcium 8.4 mg/dL (8.4-10.2)
--- NOTE | 2019-02-28 09:20 | Progress Note ---
Assessment and Plan 1. Acute kidney injury: APRIL superimposed on CKD in the setting of CHF exacerbation. Baseline renal function is unknown. Renal US showed mild R hydronephrosis. Monitor renal function. Renal prognosis is guarded. Avoid nephrotoxic agents. Meds dosage based on GFR. 2. FEN: Volume overload, diuresing well on IV Lasix. Monitor lytes. 3. Heavy proteinuria: DUDLEY, ANCA, Complements and SPEP reordered. The above were cancelled. 4. Mild R hydronephrosis: Urology consulted. 5. CHF exacerbation. 6. Secondary hyperparathyroidism: Calcitriol. 7. Anemia: POA. 8. HTN. Subjective Date of service: 02/28/19 Interval history: Patient was seen and examined at the bedside. Doing ok. Objective - Vital Signs Vital signs: Vital Signs - 12hr 02/27/19 02/27/19 02/27/19 21:25 21:28 22:39 Temperature 98.6 F 98.7 F Pulse Rate 89 89 87 Respiratory 18 16 Rate Blood Pressure 104/81 104/81 109/84 O2 Sat by Pulse 100 98 Oximetry 02/28/19 05:22 Temperature 98.2 F Pulse Rate 83 Respiratory 16 Rate Blood Pressure 106/76 O2 Sat by Pulse 98 Oximetry - General Appearance General appearance: well-developed, well-nourished, appears stated age, other (no distress) EENT: ATNC, PERRL, hearing intact, vision intact Neck: supple Respiratory: Present: Clear to Ascultation Cardiology: regular, S1S2, no murmurs Gastrointestinal: no tenderness, no distended Integumentary: no rash, warm and dry Neurologic: no focal deficit, no asterixis, alert and oriented x3 Musculoskeletal: other (2+ edema of both LEs noted) Psychiatric: cooperative - Lab 02/24/19 09:20 02/28/19 08:12 Most recent lab results Calcium 8.4 mg/dL (8.4-10.2) 02/28/19 08:12 Phosphorus 2.70 mg/dL (2.5-4.5) D 02/26/19 06:41 Magnesium 1.70 mg/dL (1.7-2.3) 02/26/19 06:41 35.2 mg/dL (0.1-20.0) H 02/23/19 17:29 86 mmol/L 02/23/19 17:29 267 mg/dL (5-11.8) H 02/23/19 17:29 Medications & Allergies - Medications Allergies/Adverse Reactions: Allergies No Known Allergies Allergy (Verified 02/22/19 00:36) Home Medications: Home Medications Medication Instructions Recorded Confirmed Last Taken Type Atovaquone [Mepron] 2 tsp PO DAILY 02/22/19 02/22/19 02/21/19 History Calcitriol [Rocaltrol] 1 tab PO DAILY 02/22/19 02/22/19 Unknown History Cinacalcet [Sensipar] 30 mg PO QDAY 02/22/19 02/22/19 02/21/19 History Ergocalciferol [Vitamin D2] 1 cap PO WMHS 02/22/19 02/22/19 Unknown History Levothyroxine [Synthroid] 75 mcg PO QAM 02/22/19 02/22/19 Unknown History Lisinopril [Zestril TAB] 20 mg PO QDAY 02/22/19 02/22/19 Unknown History Nicotine [Habitrol] 14 mg TD DAILY 02/22/19 02/22/19 02/21/19 History Omeprazole 20 mg PO DAILY 02/22/19 02/22/19 Unknown History Potassium Chloride [K-Dur] 20 meq PO QDAY 02/22/19 02/22/19 Unknown History Pravastatin [Pravachol] 20 mg PO QHS 02/22/19 02/22/19 Unknown History Sodium Bicarbonate 650 mg PO DAILY 02/22/19 02/22/19 02/21/19 History Torsemide [Demadex] 100 mg PO DAILY 02/22/19 02/22/19 Unknown History Warfarin [Coumadin] 5 mg PO QDAY 02/22/19 02/22/19 02/21/19 History predniSONE [Deltasone] 60 mg PO QDAY 02/22/19 02/22/19 02/21/19 History Active Medications: Generic Name Dose Route Start Last Admin Trade Name Freq PRN Reason Stop Dose Admin Acetaminophen 650 mg 02/22/19 02:23 02/25/19 20:28 Tylenol PO 650 mg Q4H PRN Administration Pain MILD(1-3)/Fever >100.5/[place] Aspirin 81 mg 02/22/19 10:00 02/27/19 10:16 Baby Aspirin PO 81 mg QDAY CHOLO Administration Calcitriol 0.5 mcg 02/25/19 10:00 02/27/19 10:17 Rocaltrol PO 0.5 mcg QDAY CHOLO Administration Folic Acid 1 mg 02/24/19 10:00 02/27/19 10:16 Folvite PO 1 mg QDAY CHOLO Administration Furosemide 40 mg 02/22/19 18:00 02/28/19 06:27 Lasix IV Not Given BID@0600,1800 [facility] Levothyroxine Sodium 137 mcg 02/24/19 11:04 02/27/19 10:16 Synthroid PO 137 mcg QAM CHOLO Administration Metoprolol Tartrate 25 mg 02/28/19 10:00 Lopressor PO BID CHOLO Ondansetron HCl 4 mg 02/22/19 02:23 Zofran IV Q8H PRN Nausea And Vomiting Pravastatin Sodium 20 mg 02/23/19 22:00 02/27/19 21:28 Pravachol PO 20 mg QHS CHOLO Administration Sodium Chloride 10 ml 02/22/19 10:00 02/27/19 21:28 Sodium Chloride Flush Syringe 10 Ml IV 10 ml BID CHOOL Administration Sodium Chloride 10 ml 02/22/19 02:23 Sodium Chloride Flush Syringe 10 Ml IV PRN PRN LINE FLUSH
[2019-02-28] MEDS ORDERED: LOPRESSOR PO SCH (10:00)
[2019-02-28] MEDS: SYNTHROID PO SCH (10:35)
[2019-02-28] MEDS: ROCALTROL PO SCH (10:36)
[2019-02-28] MEDS: BABY ASPIRIN PO SCH (10:36)
[2019-02-28] MEDS: SODIUM CHLORIDE FLUSH SYRINGE 10 ML IV SCH (10:36)
[2019-02-28] MEDS: FOLVITE PO SCH (10:36)
--- NOTE | 2019-02-28 11:14 | Discharge Summary ---
Providers - Providers Date of Admission: 02/22/19 01:36 Attending physician: JOSHUA ROUSE MD 02/23/19 08:02 Consult to Physician [CONS] Routine Comment: Consulting Provider: JUAN MASCORRO Physician Instructions: Reason For Exam: chronic renal failure 02/25/19 12:14 Physical Therapy Evaluation and Treat [CONS] Routine Comment: Reason For Exam: weakness 02/25/19 12:16 Consult to Physician [CONS] Routine Comment: Consulting Provider: MICHELLE GOMEZ Physician Instructions: Reason For Exam: Hydronephrosis. Hospitalization Condition: Critical Hospital course: 58-year-old woman with history of hypertension, chronic kidney disease, hyperthyroidism, CVA, hyperlipidemia parathyroid comes to the emergency room with complaints of shortness of breath, PND, orthopnea or lower extremity edema. She also complained of chest pain going across her chest which she describes as sharp, worse with breathing, no radiation, intensity 5/10, CAD) exacerbating or relieving factors. She is on chronic warfarin therapy, unclear why. Acute combined diastolic and systolic CHF, ef 45 was diuresed, meds optimized Chronic renal failure - Nephrology consulted, avoid renal toxins hypothyroidism elevated tsh and low t4 increased synthroid dose enterococcus uti rx with abx AOCD, folic acid deficiency TIBC is low, add folate daily DVT prophylaxis - On heparin Disposition - Continue inpatient care Disposition: [id number] HOME [facility] Time spent for discharge: 33 mins Core Measure Documentation - Palliative Care Palliative Care/ Comfort Measures: Not Applicable - Core Measures Any of the following diagnoses?: heart failure - Heart Failure Discharge Requirements MARYCRUZ/ARB for LVSD if EF <40%: Yes Beta montez at discharge: Yes Exam - Constitutional Vitals: Temp Pulse Resp BP Pulse Ox 98.2 F 85 16 113/78 98 02/28/19 05:22 02/28/19 10:36 02/28/19 05:22 02/28/19 10:36 02/28/19 05:22 General appearance: Present: no acute distress, well-nourished - EENT Eyes: Present: PERRL ENT: hearing intact, clear oral mucosa - Neck Neck: Present: supple, normal ROM - Respiratory Respiratory effort: normal Respiratory: bilateral: CTA - Cardiovascular Heart Sounds: Present: S1 & S2. Absent: rub, click - Extremities Extremities: pulses symmetrical, No edema Peripheral Pulses: within normal limits - Abdominal General gastrointestinal: Present: soft, non-tender, non-distended, normal bowel sounds Female genitourinary: Present: normal - Integumentary Integumentary: Present: clear, warm, dry - Musculoskeletal Musculoskeletal: gait normal, strength equal bilaterally - Psychiatric Psychiatric: appropriate mood/affect, intact judgment & insight - Neurologic Neurologic: CNII-XII intact, moves all extremities Plan Follow up with: OJ TILLMAN [Other] - 7 Days Prescriptions: Folic Acid [Folvite] 1 mg PO QDAY #30 tablet Furosemide [Lasix TAB] 40 mg PO BID #60 tablet Metoprolol [Lopressor TAB] 25 mg PO BID #60 tablet Levothyroxine [Synthroid] 137 mcg PO QAM 30 Days tablet
[2019-02-28 11:43] VITALS: BP 109/80
== END 2019-02-28 15:45 | disposition home health service (06) | DRG 291 ==
LOC: ED 22:04 → 4A 02-22 01:36 → 3A 02-25 20:59
PROVIDERS: ADMIT Internal Medicine; ATTEND Internal Medicine
DX: I13.0 Hypertensive heart and chronic kidney disease with heart failure and stage 1 through stage 4 chronic kidney disease, or unspecified chronic kidney disease (principal); I50.43 Acute on chronic combined systolic (congestive) and diastolic (congestive) heart failure; N39.0 Urinary tract infection, site not specified; N25.81 Secondary hyperparathyroidism of renal origin; N17.9 Acute kidney failure, unspecified; N13.30 Unspecified hydronephrosis; E87.6 Hypokalemia; R07.9 Chest pain, unspecified; N18.9 Chronic kidney disease, unspecified; E78.5 Hyperlipidemia, unspecified; E20.9 Hypoparathyroidism, unspecified; E21.3 Hyperparathyroidism, unspecified; B95.2 Enterococcus as the cause of diseases classified elsewhere; D52.9 Folate deficiency anemia, unspecified; D63.8 Anemia in other chronic diseases classified elsewhere; Z87.891 Personal history of nicotine dependence
CPT/HCPCS: 36415; 71045; 74176; 76770; 78452; 80048; 80061; 81001; 82140; 82550; 82553; 82570; 82607; 82728; 82747; 83550; 83735; 83880; 84100; 84156; 84300; 84436; 84439; 84443; 84484; 85025; 85610; 85730; 87076; 87086; 87116; 87186; 93005; 93010; 93017; 93306; 94640; 96365; 96375; 99406; G0378; A9270-GY; A9502; J0692; J0696; J1940; J2270; J2785; J2930; J3475; J3480